=== PATIENT | female | born 1950 | race Caucasian/White ===

== ENCOUNTER → 2017-09-13 | Emergency (ER) | payer MEDICARE, MEDICAID ==
[~2017-09-13] VITALS: Ht 157.5 cm; Wt 49.9 kg
[~2017-09-13] MED LIST: BUSPIRONE HCL10 M1 ORAL; FOLIC ACID1 MG ORAL; IBUPROFEN600 MG ORAL; MAGNESIUM400 M1 PO; MULTIVITAMINS1 EAC2 ORAL; PANTOPRAZOLE SO40 MG ORAL; TRAZODONE HCL150 MG ORAL; VENLAFAXINE HC150 MG ORAL
[2017-09-13 15:53] VITALS: BP 128/88
[2017-09-13 16:26] LABS: APPEARANCE,URINE CLEAR; BILIRUBIN, URINE NEGATIVE (NEGATIVE); COLOR,URINE PALE YELLOW; GLUCOSE, URINE (UA) NEGATIVE (NEGATIVE); KETONES,URINE NEGATIVE (NEGATIVE); LEUKOCYTE ESTERASE ,URINE NEGATIVE (NEGATIVE); NITRITE,URINE NEGATIVE (NEGATIVE); PH,URINE 6 (4.5-8.0); PROTEIN,URINE NEGATIVE (NEGATIVE); UROBILINOGEN,URINE NORMAL MG/DL (0.0-1.0)
[2017-09-13 16:31] LABS: BASOPHILS % (AUTO) 1.7 % (0.0-2.0); HEMATOCRIT 41.7 % (37.0-47.0); HEMOGLOBIN 13.2 G/DL (12.0-16.0); LYMPHOCYTES % (AUTO) 28.7 % (20.0-45.0); MEAN CORPUSCULAR VOLUME 108 FL (80-99); MONOCYTES % (AUTO) 8.1 % (1.0-10.0); NEUTROPHILS % (AUTO) 60.6 % (45.0-75.0); PLATELET COUNT 248 K/UL (150-450); RED BLOOD COUNT 3.88 M/UL (4.20-5.40); RED CELL DISTRIBUTION WIDTH 15.9 % (11.6-14.8); WHITE BLOOD COUNT 6.4 K/UL (4.8-10.8)
--- NOTE | 2017-09-13 16:50 | Emergency Room Report ---
History of Present Illness General Chief Complaint: General Complaint Source: Patient, EMS Present Illness HPI 67-year-old female, history of alcohol abuse, here for alcohol detox. Patient states that she is drink every day, when she tries to stand she gets tremulous. Never had any seizures. Last hospitalization was at [facility] for pancreatitis 3 weeks ago. She has no other complaints at this time Allergies: Coded Allergies: No Known Allergies (Unverified , 09/13/17) Patient History Past Medical History: see triage record Past Surgical History: none Pertinent Family History: none Reviewed Nursing Documentation: PMH: Agreed, PSxH: Agreed Nursing Documentation-PMH Hx Gastrointestinal Problems: Yes - PANCREATITIS History Of Psychiatric Problem: Yes - ALCOHOLIC Review of Systems All Other Systems: negative except mentioned in HPI Physical Exam Vital Signs Date Time Temp Pulse Resp B/P (MAP) Pulse Ox O2 Delivery O2 Flow Rate FiO2 09/13/17 15:53 98.4 106 20 128/88 99 Room Air Sp02 EP Interpretation: reviewed, normal General Appearance: no apparent distress, alert, GCS 15, thin, Chronically Ill Head: normocephalic, atraumatic Eyes: bilateral eye normal inspection, bilateral eye PERRL, bilateral eye EOMI ENT: normal ENT inspection, normal pharynx, normal voice, moist mucus membranes Neck: normal inspection, full range of motion, supple Respiratory: normal inspection, lungs clear, normal breath sounds, no respiratory distress, no retraction, no wheezing, speaking full sentences, chest symmetrical Cardiovascular #1: normal inspection, regular rate, rhythm, no edema, normal capillary refill Cardiovascular #2: 2+ radial (R), 2+ radial (L) Gastrointestinal: normal inspection, non tender, soft, non-distended, no guarding Musculoskeletal: normal inspection, back normal, normal range of motion, non- tender Neurologic: normal inspection, alert, oriented x3, responsive, motor strength/ tone normal, sensory intact, normal gait, speech normal Psychiatric: normal inspection, judgement/insight normal, memory normal Skin: normal inspection, normal color, no rash, warm/dry, well hydrated, normal turgor Medical Decision Making Diagnostic Impression: Primary Impression: Alcohol dependence ER Course 67-year-old female, alcohol abuse, here for alcohol detoxification DDX: Alcohol detoxification, no signs of withdrawal at this time Plan: Obtain labs, alcohol level ER course: Patient has been monitored during ED stay, HD stable No signs of withdrawal at this time Patient clinically sober, ambulating around the emergency room Patient was initially admitted for alcohol detoxification, was seen by Dr Pittman However patient's car was being towed, patient left AGAINST MEDICAL ADVICE and stated that she needed to take care of her car. Although patient's alcohol level elevated, patient was clinically sober. Patient with long history of alcohol dependence, high tolerance Patient is clinically sober, is free from from distracting injury, and has intact judgement and capacity to decide to leave against medical advice. Patient came in for alcohol detox Patient verbalized understanding of my concern and my need to admit patient, but patient still wanted to leave. Stated that she will come back tomorrow.. I explained to patient the risks of leaving AMA and patient informed that if they leave, they could get worse, ould become become critically ill, possibly become disabled or . Patient verbalized back to me understanding of these risks but still wants to leave. Disposition: Patient left AMA Please note that this Emergency Department Report was dictated using [employer] readers supervisor technology software, occasionally this can lead to erroneous entry secondary to interpretation by the dictation equipment. Laboratory Tests Test 09/13/17 16:00 09/13/17 16:05 Urine Color Pale yellow Urine Appearance Clear Urine pH 6 (4.5-8.0) Urine Specific [place] 1.015 (1.005-1.035) Urine Protein Negative (NEGATIVE) Urine Glucose (UA) Negative (NEGATIVE) Urine Ketones Negative (NEGATIVE) Urine Occult Blood Negative (NEGATIVE) Urine Nitrite Negative (NEGATIVE) Urine Bilirubin Negative (NEGATIVE) Urine Urobilinogen Normal MG/DL (0.0-1.0) Urine Leukocyte Esterase Negative (NEGATIVE) Urine Opiates Screen Negative (NEGATIVE) Urine Barbiturates Screen Negative (NEGATIVE) Phencyclidine (PCP) Screen Negative (NEGATIVE) Urine Amphetamines Screen Negative (NEGATIVE) Urine Benzodiazepines Screen Negative (NEGATIVE) Urine Cocaine Screen Negative (NEGATIVE) Urine Marijuana (THC) Screen Negative (NEGATIVE) White Blood Count 6.4 K/UL (4.8-10.8) Red Blood Count 3.88 M/UL (4.20-5.40) L Hemoglobin 13.2 G/DL (12.0-16.0) Hematocrit 41.7 % (37.0-47.0) Mean Corpuscular Volume 108 FL (80-99) H Mean Corpuscular Hemoglobin 34.0 PG (27.0-31.0) H Mean Corpuscular Hemoglobin Concent 31.7 G/DL (32.0-36.0) L Red Cell Distribution Width 15.9 % (11.6-14.8) H Platelet Count 248 K/UL (150-450) Mean Platelet Volume 5.0 FL (6.5-10.1) L Neutrophils (%) (Auto) 60.6 % (45.0-75.0) Lymphocytes (%) (Auto) 28.7 % (20.0-45.0) Monocytes (%) (Auto) 8.1 % (1.0-10.0) Eosinophils (%) (Auto) 1.0 % (0.0-3.0) Basophils (%) (Auto) 1.7 % (0.0-2.0) Sodium Level 137 MMOL/L (136-145) Potassium Level 5.1 MMOL/L (3.5-5.1) Chloride Level 100 MMOL/L (98-107) Carbon Dioxide Level 21 MMOL/L (21-32) Anion Gap 16 mmol/L (5-15) H Blood Urea Nitrogen 17 mg/dL (7-18) Creatinine 0.8 MG/DL (0.55-1.30) Estimate Glomerular Filtration Rate > 60 mL/min (>60) Glucose Level 90 MG/DL (74-106) Calcium Level 8.7 MG/DL (8.5-10.1) Total Bilirubin 0.5 MG/DL (0.2-1.0) Aspartate Amino Transferase (AST) 90 U/L (15-37) H Alanine Aminotransferase (ALT) 58 U/L (12-78) Alkaline Phosphatase 159 U/L (46-116) H Total Protein 7.0 G/DL (6.4-8.2) Albumin 3.1 G/DL (3.4-5.0) L Globulin 3.9 g/dL Albumin/Globulin Ratio 0.8 (1.0-2.7) L Lipase 258 U/L (73-393) Salicylates Level 3.5 ug/mL (2.8-20) Acetaminophen Level < 2 MCG/ML (10-30) L Serum Alcohol 211 mg/dL Last Vital Signs Date Time Temp Pulse Resp B/P (MAP) Pulse Ox O2 Delivery O2 Flow Rate FiO2 09/13/17 15:53 98.4 106 20 128/88 99 Room Air Disposition: AGAINST MEDICAL ADVICE Condition: Stable Referrals: Gaudencio Pittman MD (PCP) Khurram Mora M.D. Sep 13, 2017 16:50
[2017-09-13 16:53] LABS: ANION GAP 16 mmol/L (5-15); BLOOD UREA NITROGEN 17 mg/dL (7-18); CALCIUM 8.7 MG/DL (8.5-10.1); CARBON DIOXIDE 21 MMOL/L (21-32); CHLORIDE 100 MMOL/L (98-107); CREATININE 0.8 MG/DL (0.55-1.30); POTASSIUM 5.1 MMOL/L (3.5-5.1); SODIUM 137 MMOL/L (136-145)
[2017-09-13 16:58] LABS: ALANINE AMINOTRANSFERASE 58 U/L (12-78); ALBUMIN 3.1 G/DL (3.4-5.0); ALBUMIN/GLOBULIN RATIO 0.8 (1.0-2.7); ALKALINE PHOSPHATASE 159 U/L (46-116); BILIRUBIN,TOTAL 0.5 MG/DL (0.2-1.0)
[2017-09-13 17:07] LABS: ASPARTATE AMINO TRANSFERASE 90 U/L (15-37)
--- NOTE | 2017-09-13 17:32 | History & Physical ---
History and Physical History & Physicial Last 24 Hour Vital Signs Date Time Temp Pulse Resp B/P (MAP) Pulse Ox O2 Delivery O2 Flow Rate FiO2 09/13/17 15:53 98.4 106 20 128/88 99 Room Air Patient was seen and exam in ED H&P dictated Gaudencio Pittman MD Sep 13, 2017 17:32
--- NOTE | 2017-09-15 10:00 | History and Physical Report ---
DATE OF ADMISSION: 09/13/2017 NOTE: POOR AUDIO CHIEF COMPLAINT: Alcoholism. HISTORY OF PRESENT ILLNESS: This is a 67-year-old female with past medical history significant for alcohol abuse as well as depression and prior history of pancreatitis, who presented to emergency room complaining about alcoholism and is requiring alcohol detoxification. The patient has been usually drinking everyday more than a pint of vodka. She states that she has been drinking over 10 to 15 years on and off and she is tired of standing and getting tremulous, never had any seizure. Last hospitalization was at [facility] for pancreatitis three weeks ago and she has no other complaints at this time. Subsequently, the patient, after initial evaluation in the emergency room, was admitted to the hospital for alcoholism and alcohol detoxification. PAST MEDICAL HISTORY/PAST SURGICAL HISTORY: As above. History of depression and anxiety. History of alcoholism with prior history of pancreatitis. MEDICATIONS: Medications at home is significant for , ibuprofen, magnesium, multivitamins, Nexium, trazodone, and Effexor. ALLERGIES: No known drug allergies. SOCIAL HISTORY: The patient currently drinks over a pint of vodka over 10 to 15 years. Smoked one pack of cigarettes. Denies any substance abuse. FAMILY HISTORY: Noncontributory. REVIEW OF SYSTEMS: Mostly as above. Denies any dysuria, frequency, or hematuria. Denies any abdominal pain. Denies any hemoptysis or hematochezia. Denies any suicidal or homicidal ideation. Denies any loss of consciousness. Denies any double vision. She is feeling nervous and anxious. She denies any seizure activity. PHYSICAL EXAMINATION: VITAL SIGNS: On admission, temperature 98.4 degrees, pulse of 106, respirations 20, and blood pressure 128/88. GENERAL: The patient awake, responsive, cachectic, and chronically ill-looking. HEENT: Pupils reactive to light. Extraocular movements intact. NECK: Supple. No JVD. LUNGS: rales. HEART: S1 and S2. Regular rhythm. No gallops. ABDOMEN: Soft, nondistended, and nontender. Positive bowel sounds. RECTAL: Refused and deferred. GENITOURINARY: Refused and deferred. EXTREMITIES: No cyanosis, clubbing, or edema. NEUROLOGIC: Cranial nerves II through XII grossly intact. Motor is 5/5 in all extremities. Gait is intact. LABORATORY DATA: On admission, WBC of 6.4, hemoglobin 13, hematocrit 41, and platelets are 248. Sodium 137, potassium 5.1, chloride 100, bicarbonate 21, BUN 17, creatinine 0.8, glucose 98, and calcium is 8.7. Total bilirubin of 0.5, AST of 90, ALT of 58, and alkaline phosphatase 159. Albumin is 3.1. Lipase is 258. UA is unremarkable. Urine drug screen is unremarkable. Acetaminophen level is less than 2. Serum alcohol level is 211. ASSESSMENT: 1. Alcoholism. 2. Prior history of pancreatitis. 3. Anxiety and depression. PLAN: At this time, the patient will be admitted for alcohol detoxification and discussed with the patient with regard to the withdrawal symptoms and the patient is very anxious, wants to sign against medical advice because of her car situation in the parking lot. She states that she wants to leave the hospital to take care of her car and possibly return back in the morning. I discussed with the patient that we have cushion assembler parking and mill attendant will take care of her car at this time while she is in the hospital. She is still very anxious and she wants to leave against medical advice. Discussed with the patient with regard to the alcohol intoxication as well as withdrawal symptoms. She understood that and she signed against medical advice and left the hospital. Gaudencio Pittman M.D. DR: Jana JOB#: [id number] CC:
--- NOTE | 2017-09-30 09:19 | IOP Physician Progress Note ---
IOP Physician Progress Note Problem: depression Description of Symptoms: Says she is feeling better, that the fog is lifting, from the drinking, is now sober 10 days. But does not feel well emotionally, feels depressed and anxious , has had pounding heart, which has been happening past month or so. Diagnosis (1) Alcohol dependence [place] I: Major depression Alcoholism, chronic [place]: II deferred [place]: III pancreatitis [place]: IV moderate [place]: V 31-40 Progress Since Last Eval: Patient is still dysphoric, but HAS remained sober. Current Med Management: This is under review. Sees Dr. Pittman who has been managing psychiatric medications. Home Meds: Reported Medications Trazodone* (TRAZODONE*) 150 Mg Tablet, 50 MG ORAL BEDTIME, TAB 09/13/17 Magnesium Oxide (MAGNESIUM) 400 Mg Capsule, 400 MG PO DAILY, CAP 09/13/17 Ibuprofen* (MOTRIN*) 600 Mg Tablet, 800 MG ORAL Q8HR, #30 TAB 0 Refills 09/13/17 Pantoprazole* (PANTOPRAZOLE*) 40 Mg Tablet.dr, 40 MG ORAL DAILY, TAB 09/13/17 Venlafaxine Hcl* (VENLAFAXINE HCL ER*) 150 Mg Cap.er.24h, 150 MG ORAL DAILY, CAP 09/13/17 Buspirone Hcl* (BUSPIRONE HCL*) 10 Mg Tablet, 10 MG ORAL DAILY, #60 TAB 0 Refills 09/13/17 Multivitamins* (MULTIVITAMINS*) 1 Each Tablet, 1 TAB ORAL DAILY, TAB 0 Refills 09/13/17 Appearance: well groomed Affect: constricted Mood: depressed Thought Process: no abnormalities Thought Content: no abnormalities Suicidal/Homicidal Ideations: not present Risk Assessment: low risk at this time Cognition: no abnormalities Accomplishments before DC: Needs to develop tools to remain sober, and work on depression. Comments There are no acute physiclal problems apart from the pancreatitis which is being followed. YINKA HILL Sep 30, 2017 09:18
--- NOTE | 2017-11-25 09:16 | IOP Physician Progress Note ---
IOP Physician Progress Note Description of Symptoms: The patient is feeling more depressed, and says her bulemia is back, the worst it has been for some time--she is eating a lot and throwing up. Diagnosis (1) Alcohol dependence [place] I: Major depression Alcoholism, chronic bulemia [place]: II deferred [place]: III pancreatitis [place]: IV moderate [place]: V 31-40 Progress Since Last Eval: The patient feels she has been regressing. Current Med Management: The patient has increased her buspar to twice a day, for a few weeks. This has , however, been inconsistent. We will increase it to regularly to twice a day. Will also increase effexor to 225 a day. Home Meds: Reported Medications Folic Acid* (FOLIC ACID*) 1 Mg Tablet, 1 MG ORAL DAILY, TAB 09/30/17 Trazodone* (TRAZODONE*) 150 Mg Tablet, 50 MG ORAL BEDTIME, TAB 09/13/17 Magnesium Oxide (MAGNESIUM) 400 Mg Capsule, 400 MG PO DAILY, CAP 09/13/17 Ibuprofen* (MOTRIN*) 600 Mg Tablet, 800 MG ORAL Q8HR, #30 TAB 0 Refills 09/13/17 Pantoprazole* (PANTOPRAZOLE*) 40 Mg Tablet.dr, 40 MG ORAL DAILY, TAB 09/13/17 Venlafaxine Hcl* (VENLAFAXINE HCL ER*) 150 Mg Cap.er.24h, 150 MG ORAL DAILY, CAP 09/13/17 Buspirone Hcl* (BUSPIRONE HCL*) 10 Mg Tablet, 10 MG ORAL DAILY, #60 TAB 0 Refills 09/13/17 Multivitamins* (MULTIVITAMINS*) 1 Each Tablet, 1 TAB ORAL DAILY, TAB 0 Refills 09/13/17 Appearance: well groomed Affect: constricted Mood: depressed Thought Process: no abnormalities Thought Content: no abnormalities Suicidal/Homicidal Ideations: not present Risk Assessment: low risk at this time Cognition: no abnormalities Accomplishments before DC: Needs to get back to her usual state of well being. Comments There are no physical problems. Jesus Joseph MD Nov 25, 2017 09:16
== END | disposition home or self-care (01) ==
LOC: EMR 15:59 → CANBEDREQ 17:44
DX: F10.20 Alcohol dependence, uncomplicated (principal); F41.9 Anxiety disorder, unspecified; F32.9 Major depressive disorder, single episode, unspecified; Z87.19 Personal history of other diseases of the digestive system
CPT/HCPCS: 36415; 80053; 80307; 81003; 83690; 85025; 99282; G0480; 80329

== ENCOUNTER 2017-09-15 13:41 | Inpatient (IN) | payer MEDICARE, MEDICAID ==
[~2017-09-15] VITALS: Ht 157.5 cm; Wt 49.9 kg
[~2017-09-15 13:41] MED LIST changes: -FOLIC ACID1 MG ORAL
--- NOTE | 2017-09-15 14:07 | Emergency Room Report ---
History of Present Illness General Chief Complaint: General Complaint Source: Patient Present Illness HPI 67-year-old female, history of alcohol abuse, here for alcohol detox. Patient states that she has been drinking every day, last drink was this morning. Feeling slightly tremulous right now. Episode of vomiting earlier today. No fever chills chest pain or abdominal pain currently. Denies history of seizures in the past Allergies: Coded Allergies: No Known Allergies (Unverified , 09/13/17) Patient History Past Medical History: see triage record Past Surgical History: none Pertinent Family History: none Reviewed Nursing Documentation: PMH: Agreed, PSxH: Agreed Nursing Documentation-PM Past Medical History: No History, Except For Review of Systems All Other Systems: negative except mentioned in HPI Physical Exam Vital Signs Date Time Temp Pulse Resp B/P (MAP) Pulse Ox O2 Delivery O2 Flow Rate FiO2 09/15/17 13:45 97.5 122 16 147/64 97 Room Air Sp02 EP Interpretation: reviewed, normal General Appearance: alert, GCS 15, non-toxic, mild distress, other - slight tremors Head: normocephalic, atraumatic Eyes: bilateral eye normal inspection, bilateral eye PERRL, bilateral eye EOMI ENT: normal ENT inspection, normal pharynx, normal voice, moist mucus membranes Neck: normal inspection, full range of motion, supple Respiratory: normal inspection, lungs clear, normal breath sounds, no respiratory distress, no retraction, no wheezing, speaking full sentences, chest symmetrical Cardiovascular #1: no edema, normal capillary refill, tachycardia Cardiovascular #2: 2+ radial (R), 2+ radial (L) Gastrointestinal: normal inspection, non tender, soft, non-distended, no guarding Musculoskeletal: normal inspection, back normal, normal range of motion, non- tender Neurologic: normal inspection, alert, oriented x3, responsive, gear tooth lapping machine operator III-XII nml as tested, motor strength/tone normal, sensory intact, normal gait, speech normal Psychiatric: normal inspection, judgement/insight normal, memory normal Skin: normal inspection, normal color, no rash, warm/dry, well hydrated, normal turgor Medical Decision Making Diagnostic Impression: Primary Impression: Alcohol withdrawal ER Course 67-year-old female, history of alcohol abuse, here for alcohol detoxification currently clinically sober DDX: Alcohol withdrawal here for alcohol detoxification Plan: Obtain labs, ua, Ativan as needed ER course: Patient has been monitored during ED stay, HD stable Given 2 mg Ativan received IVF still tremulous, given more ativan [id number] Disposition: Patient is to be admitted to Tele D/W hospitalist Dr Pittman Please note that this Emergency Department Report was dictated using [employer] standards director technology software, occasionally this can lead to erroneous entry secondary to interpretation by the dictation equipment. Rhythm Strip EP Interpretation: Yes Rate: 107 Rhythm: NSR, no PVCs, no ectopy Laboratory Tests Test 09/15/17 14:20 09/15/17 15:50 White Blood Count 7.6 K/UL (4.8-10.8) Red Blood Count 3.73 M/UL (4.20-5.40) L Hemoglobin 13.3 G/DL (12.0-16.0) Hematocrit 40.8 % (37.0-47.0) Mean Corpuscular Volume 109 FL (80-99) H Mean Corpuscular Hemoglobin 35.6 PG (27.0-31.0) H Mean Corpuscular Hemoglobin Concent 32.6 G/DL (32.0-36.0) Red Cell Distribution Width 16.3 % (11.6-14.8) H Platelet Count 228 K/UL (150-450) Mean Platelet Volume 5.5 FL (6.5-10.1) L Neutrophils (%) (Auto) 68.9 % (45.0-75.0) Lymphocytes (%) (Auto) 21.8 % (20.0-45.0) Monocytes (%) (Auto) 8.0 % (1.0-10.0) Eosinophils (%) (Auto) 0.1 % (0.0-3.0) Basophils (%) (Auto) 1.3 % (0.0-2.0) Sodium Level 139 MMOL/L (136-145) Potassium Level 3.3 MMOL/L (3.5-5.1) L Chloride Level 98 MMOL/L (98-107) Carbon Dioxide Level 8 MMOL/L (21-32) *L Anion Gap 33 mmol/L (5-15) H Blood Urea Nitrogen 14 mg/dL (7-18) Creatinine 0.9 MG/DL (0.55-1.30) Estimate Glomerular Filtration Rate > 60 mL/min (>60) Glucose Level 51 MG/DL (74-106) L Calcium Level 8.3 MG/DL (8.5-10.1) L Total Bilirubin 0.3 MG/DL (0.2-1.0) Aspartate Amino Transferase (AST) 99 U/L (15-37) H Alanine Aminotransferase (ALT) 59 U/L (12-78) Alkaline Phosphatase 166 U/L (46-116) H Total Protein 6.9 G/DL (6.4-8.2) Albumin 3.2 G/DL (3.4-5.0) L Globulin 3.7 g/dL Albumin/Globulin Ratio 0.9 (1.0-2.7) L Salicylates Level 4.0 ug/mL (2.8-20) Acetaminophen Level < 2 MCG/ML (10-30) L Serum Alcohol 118 mg/dL Arterial Blood pH 7.310 (7.350-7.450) Arterial Blood Partial Pressure CO2 29.1 mmHg (35.0-45.0) L Arterial Blood Partial Pressure O2 72.1 mmHg (75.0-100.0) L Arterial Blood HCO3 14.3 mmol/L (22.0-26.0) L Arterial Blood Oxygen Saturation 91.5 % (92.0-98.0) L Arterial Blood Base Excess -10.5 Pravin Test Positive Last Vital Signs Date Time Temp Pulse Resp B/P (MAP) Pulse Ox O2 Delivery O2 Flow Rate FiO2 09/15/17 13:45 97.5 122 16 147/64 97 Room Air Disposition: ADMITTED INPATIENT Condition: Serious Khurram Mora M.D. Sep 15, 2017 14:07
[2017-09-15] MEDS ORDERED: LORazepam Inj 2mg/ml 1ml IV ONE ×3 (14:15→16:30)
[2017-09-15 14:26] VITALS: BP 134/92
[2017-09-15 14:54] LABS: BASOPHILS % (AUTO) 1.3 % (0.0-2.0); EOSINOPHILS % (AUTO) 0.1 % (0.0-3.0); HEMATOCRIT 40.8 % (37.0-47.0); HEMOGLOBIN 13.3 G/DL (12.0-16.0); LYMPHOCYTES % (AUTO) 21.8 % (20.0-45.0); MEAN CORPUSCULAR VOLUME 109 FL (80-99); NEUTROPHILS % (AUTO) 68.9 % (45.0-75.0); PLATELET COUNT 228 K/UL (150-450); RED BLOOD COUNT 3.73 M/UL (4.20-5.40); RED CELL DISTRIBUTION WIDTH 16.3 % (11.6-14.8); WHITE BLOOD COUNT 7.6 K/UL (4.8-10.8)
[2017-09-15 15:33] LABS: ALANINE AMINOTRANSFERASE 59 U/L (12-78); ALBUMIN 3.2 G/DL (3.4-5.0); ALBUMIN/GLOBULIN RATIO 0.9 (1.0-2.7); ALKALINE PHOSPHATASE 166 U/L (46-116); ANION GAP 33 mmol/L (5-15); ASPARTATE AMINO TRANSFERASE 99 U/L (15-37); BILIRUBIN,TOTAL 0.3 MG/DL (0.2-1.0); BLOOD UREA NITROGEN 14 mg/dL (7-18); CALCIUM 8.3 MG/DL (8.5-10.1); CHLORIDE 98 MMOL/L (98-107); CREATININE 0.9 MG/DL (0.55-1.30); POTASSIUM 3.3 MMOL/L (3.5-5.1); SODIUM 139 MMOL/L (136-145)
[2017-09-15 15:35] LABS: CARBON DIOXIDE 8 MMOL/L (21-32)
[2017-09-15] MEDS ORDERED: chlordiazePOXIDE 25mg Cap ORAL ONE (16:15)
[2017-09-15] MEDS ORDERED: Morphine Sulfate 2mg/ml Inj IVP PRN (16:15)
[2017-09-15] MEDS ORDERED: Mylanta II UD 30ml ORAL PRN (16:15)
[2017-09-15] MEDS ORDERED: LORazepam Inj 2mg/ml 1ml IV PRN (16:15)
[2017-09-15] MEDS ORDERED: Thiamine HCl 100 MG in NS 55 ML IVPB SCH (18:00)
[2017-09-15] MEDS ORDERED: Folic Acid 1 MG, Magnesium Sulfate 2,000 MG, Multivitamin - 12 Injection 10 ML in NS w/... IV SCH (18:00)
[2017-09-15 18:01] VITALS: BP 119/81
[2017-09-15 20:00] VITALS: BP 119/84
[2017-09-15] MEDS ORDERED: chlordiazePOXIDE 25mg Cap ORAL PRN (20:00)
[2017-09-15] MEDS ORDERED: Zolpidem 5mg tab ORAL PRN (21:00)
[2017-09-15] MEDS: Heparin 5000 units/ml inj SUBQ SCH (21:00)
[2017-09-15] MEDS ORDERED: Miralax 17gm pkt ORAL PRN (21:00)
[2017-09-15] MEDS ORDERED: TraZODone 50mg tab ORAL SCH (21:00)
[2017-09-16] VITALS: BP 129/80
[2017-09-16 04:00] VITALS: BP 135/80
[2017-09-16 07:59] LABS: BASOPHILS % (AUTO) 0.7 % (0.0-2.0); EOSINOPHILS % (AUTO) 1.1 % (0.0-3.0); HEMATOCRIT 33.4 % (37.0-47.0); LYMPHOCYTES % (AUTO) 22.3 % (20.0-45.0); MEAN CORPUSCULAR VOLUME 109 FL (80-99); MONOCYTES % (AUTO) 10.1 % (1.0-10.0); NEUTROPHILS % (AUTO) 65.9 % (45.0-75.0); PLATELET COUNT 161 K/UL (150-450); RED BLOOD COUNT 3.07 M/UL (4.20-5.40); RED CELL DISTRIBUTION WIDTH 16.7 % (11.6-14.8); WHITE BLOOD COUNT 4.8 K/UL (4.8-10.8)
[2017-09-16 08:00] VITALS: BP 118/76
[2017-09-16 08:15] LABS: ALANINE AMINOTRANSFERASE 45 U/L (12-78); ALBUMIN 2.5 G/DL (3.4-5.0); ALBUMIN/GLOBULIN RATIO 0.8 (1.0-2.7); ALKALINE PHOSPHATASE 150 U/L (46-116); ANION GAP 13 mmol/L (5-15); ASPARTATE AMINO TRANSFERASE 80 U/L (15-37); BILIRUBIN,TOTAL 0.5 MG/DL (0.2-1.0); BLOOD UREA NITROGEN 8 mg/dL (7-18); CALCIUM 7.6 MG/DL (8.5-10.1); CARBON DIOXIDE 22 MMOL/L (21-32); CHLORIDE 102 MMOL/L (98-107); CREATININE 0.8 MG/DL (0.55-1.30); POTASSIUM 3.8 MMOL/L (3.5-5.1); SODIUM 137 MMOL/L (136-145)
[2017-09-16] MEDS ORDERED: BusPIRone 5mg Tab ORAL SCH (09:00)
[2017-09-16] MEDS ORDERED: Venlafaxine XR 150mg cap ORAL SCH (09:00)
[2017-09-16] MEDS: Heparin 5000 units/ml inj SUBQ SCH ×2 (09:24→20:37)
[2017-09-16 10:18] LABS: APPEARANCE,URINE CLEAR; BILIRUBIN, URINE NEGATIVE (NEGATIVE); COLOR,URINE PALE YELLOW; GLUCOSE, URINE (UA) NEGATIVE (NEGATIVE); KETONES,URINE 4+ (NEGATIVE); LEUKOCYTE ESTERASE ,URINE NEGATIVE (NEGATIVE); NITRITE,URINE NEGATIVE (NEGATIVE); PH,URINE 5 (4.5-8.0); PROTEIN,URINE NEGATIVE (NEGATIVE); UROBILINOGEN,URINE NORMAL MG/DL (0.0-1.0)
--- NOTE | 2017-09-16 11:18 | Neurology Progress Note ---
Objective Physical Exam Last Vital Signs Date Time Temp Pulse Resp B/P (MAP) Pulse Ox O2 Delivery O2 Flow Rate FiO2 09/16/17 08:00 97.9 99 20 118/76 99 Room Air Laboratory Tests Test 09/15/17 14:20 09/15/17 15:50 09/16/17 07:15 09/16/17 09:30 White Blood Count 7.6 K/UL (4.8-10.8) 4.8 K/UL (4.8-10.8) Red Blood Count 3.73 M/UL (4.20-5.40) L 3.07 M/UL (4.20-5.40) L Hemoglobin 13.3 G/DL (12.0-16.0) 11.0 G/DL (12.0-16.0) L Hematocrit 40.8 % (37.0-47.0) 33.4 % (37.0-47.0) L Mean Corpuscular Volume 109 FL (80-99) H 109 FL (80-99) H Mean Corpuscular Hemoglobin 35.6 PG (27.0-31.0) H 36.0 PG (27.0-31.0) H Mean Corpuscular Hemoglobin Concent 32.6 G/DL (32.0-36.0) 33.1 G/DL (32.0-36.0) Red Cell Distribution Width 16.3 % (11.6-14.8) H 16.7 % (11.6-14.8) H Platelet Count 228 K/UL (150-450) 161 K/UL (150-450) Mean Platelet Volume 5.5 FL (6.5-10.1) L 5.7 FL (6.5-10.1) L Neutrophils (%) (Auto) 68.9 % (45.0-75.0) 65.9 % (45.0-75.0) Lymphocytes (%) (Auto) 21.8 % (20.0-45.0) 22.3 % (20.0-45.0) Monocytes (%) (Auto) 8.0 % (1.0-10.0) 10.1 % (1.0-10.0) H Eosinophils (%) (Auto) 0.1 % (0.0-3.0) 1.1 % (0.0-3.0) Basophils (%) (Auto) 1.3 % (0.0-2.0) 0.7 % (0.0-2.0) Sodium Level 139 MMOL/L (136-145) 137 MMOL/L (136-145) Potassium Level 3.3 MMOL/L (3.5-5.1) L 3.8 MMOL/L (3.5-5.1) Chloride Level 98 MMOL/L (98-107) 102 MMOL/L (98-107) Carbon Dioxide Level 8 MMOL/L (21-32) *L 22 MMOL/L (21-32) Anion Gap 33 mmol/L (5-15) H 13 mmol/L (5-15) Blood Urea Nitrogen 14 mg/dL (7-18) 8 mg/dL (7-18) Creatinine 0.9 MG/DL (0.55-1.30) 0.8 MG/DL (0.55-1.30) Estimat Glomerular Filtration Rate > 60 mL/min (>60) > 60 mL/min (>60) Glucose Level 51 MG/DL (74-106) L 103 MG/DL (74-106) Calcium Level 8.3 MG/DL (8.5-10.1) L 7.6 MG/DL (8.5-10.1) L Total Bilirubin 0.3 MG/DL (0.2-1.0) 0.5 MG/DL (0.2-1.0) Aspartate Amino Transf (AST/SGOT) 99 U/L (15-37) H 80 U/L (15-37) H Alanine Aminotransferase (ALT/SGPT) 59 U/L (12-78) 45 U/L (12-78) Alkaline Phosphatase 166 U/L (46-116) H 150 U/L (46-116) H Total Protein 6.9 G/DL (6.4-8.2) 5.7 G/DL (6.4-8.2) L Albumin 3.2 G/DL (3.4-5.0) L 2.5 G/DL (3.4-5.0) L Globulin 3.7 g/dL 3.2 g/dL Albumin/Globulin Ratio 0.9 (1.0-2.7) L 0.8 (1.0-2.7) L Salicylates Level 4.0 ug/mL (2.8-20) Acetaminophen Level < 2 MCG/ML (10-30) L Serum Alcohol 118 mg/dL Arterial Blood pH 7.310 (7.350-7.450) Arterial Blood Partial Pressure CO2 29.1 mmHg (35.0-45.0) L Arterial Blood Partial Pressure O2 72.1 mmHg (75.0-100.0) L Arterial Blood HCO3 14.3 mmol/L (22.0-26.0) L Arterial Blood Oxygen Saturation 91.5 % (92.0-98.0) L Arterial Blood Base Excess -10.5 Pravin Test Positive Urine Color Pale yellow Urine Appearance Clear Urine pH 5 (4.5-8.0) Urine Specific [place] 1.020 (1.005-1.035) Urine Protein Negative (NEGATIVE) Urine Glucose (UA) Negative (NEGATIVE) Urine Ketones 4+ (NEGATIVE) H Urine Occult Blood Negative (NEGATIVE) Urine Nitrite Negative (NEGATIVE) Urine Bilirubin Negative (NEGATIVE) Urine Urobilinogen Normal MG/DL (0.0-1.0) Urine Leukocyte Esterase Negative (NEGATIVE) Urine Opiates Screen Negative (NEGATIVE) Urine Barbiturates Screen Negative (NEGATIVE) Phencyclidine (PCP) Screen Negative (NEGATIVE) Urine Amphetamines Screen Negative (NEGATIVE) Urine Benzodiazepines Screen Negative (NEGATIVE) Urine Cocaine Screen Negative (NEGATIVE) Urine Marijuana (THC) Screen Negative (NEGATIVE) Impression/Recommendations Recommendations #[id number] JAMAL JHAVERI Sep 16, 2017 11:18
--- NOTE | 2017-09-16 11:27 | Consultation ---
History of Present Illness General Date patient seen: Sep 16, 2017 Chief Complaint: General Complaint Present Illness HPI 67-year-old female, history of alcohol dependance for the last 20 yrs and severe depression , here for alcohol detox. the pt is depressed and has severe anhedonia and hopelessness. the pt was interested in ECT. the pt is devastated, her daughter the pts grandson and herself about the month ago. Allergies: Coded Allergies: No Known Allergies (Unverified , 09/13/17) Medication History Scheduled Buspirone Hcl* (Buspirone Hcl*), 10 MG ORAL DAILY, (Reported) Ibuprofen* (Motrin*), 800 MG ORAL Q8HR, (Reported) Magnesium Oxide (Magnesium), 400 MG PO DAILY, (Reported) Multivitamins* (Multivitamins*), 1 TAB ORAL DAILY, (Reported) Pantoprazole* (Pantoprazole*), 40 MG ORAL DAILY, (Reported) Trazodone* (Trazodone*), 50 MG ORAL BEDTIME, (Reported) Venlafaxine Hcl* (Venlafaxine Hcl Er*), 150 MG ORAL DAILY, (Reported) Patient History History Provided By: Patient Healthcare decision maker Resuscitation status Full Code Advanced Directive on File No Physical Exam Last 24 Hour Vital Signs Date Time Temp Pulse Resp B/P (MAP) Pulse Ox O2 Delivery O2 Flow Rate FiO2 09/16/17 08:00 97.9 99 20 118/76 99 Room Air 09/16/17 04:00 98.2 102 20 135/80 94 Room Air 102 09/16/17 04:00 100 09/16/17 00:00 97.4 100 12 129/80 97 Room Air 09/16/17 00:00 107 09/15/17 20:00 97.9 110 20 119/84 95 Room Air 09/15/17 20:00 125 09/15/17 18:01 97.0 128 18 119/81 98 Room Air 09/15/17 17:26 97.5 111 20 134/92 95 Room Air 09/15/17 14:26 111 20 134/92 95 Room Air 09/15/17 13:45 97.5 122 16 147/64 97 Room Air Intake and Output 09/15/17 09/16/17 19:00 07:00 Intake Total 170 ml 400 ml Balance 170 ml 400 ml Intake Oral 170 ml 400 ml # Voids 1 Laboratory Tests Test 09/15/17 14:20 09/15/17 15:50 09/16/17 07:15 09/16/17 09:30 White Blood Count 7.6 K/UL (4.8-10.8) 4.8 K/UL (4.8-10.8) Red Blood Count 3.73 M/UL (4.20-5.40) L 3.07 M/UL (4.20-5.40) L Hemoglobin 13.3 G/DL (12.0-16.0) 11.0 G/DL (12.0-16.0) L Hematocrit 40.8 % (37.0-47.0) 33.4 % (37.0-47.0) L Mean Corpuscular Volume 109 FL (80-99) H 109 FL (80-99) H Mean Corpuscular Hemoglobin 35.6 PG (27.0-31.0) H 36.0 PG (27.0-31.0) H Mean Corpuscular Hemoglobin Concent 32.6 G/DL (32.0-36.0) 33.1 G/DL (32.0-36.0) Red Cell Distribution Width 16.3 % (11.6-14.8) H 16.7 % (11.6-14.8) H Platelet Count 228 K/UL (150-450) 161 K/UL (150-450) Mean Platelet Volume 5.5 FL (6.5-10.1) L 5.7 FL (6.5-10.1) L Neutrophils (%) (Auto) 68.9 % (45.0-75.0) 65.9 % (45.0-75.0) Lymphocytes (%) (Auto) 21.8 % (20.0-45.0) 22.3 % (20.0-45.0) Monocytes (%) (Auto) 8.0 % (1.0-10.0) 10.1 % (1.0-10.0) H Eosinophils (%) (Auto) 0.1 % (0.0-3.0) 1.1 % (0.0-3.0) Basophils (%) (Auto) 1.3 % (0.0-2.0) 0.7 % (0.0-2.0) Sodium Level 139 MMOL/L (136-145) 137 MMOL/L (136-145) Potassium Level 3.3 MMOL/L (3.5-5.1) L 3.8 MMOL/L (3.5-5.1) Chloride Level 98 MMOL/L (98-107) 102 MMOL/L (98-107) Carbon Dioxide Level 8 MMOL/L (21-32) *L 22 MMOL/L (21-32) Anion Gap 33 mmol/L (5-15) H 13 mmol/L (5-15) Blood Urea Nitrogen 14 mg/dL (7-18) 8 mg/dL (7-18) Creatinine 0.9 MG/DL (0.55-1.30) 0.8 MG/DL (0.55-1.30) Estimat Glomerular Filtration Rate > 60 mL/min (>60) > 60 mL/min (>60) Glucose Level 51 MG/DL (74-106) L 103 MG/DL (74-106) Calcium Level 8.3 MG/DL (8.5-10.1) L 7.6 MG/DL (8.5-10.1) L Total Bilirubin 0.3 MG/DL (0.2-1.0) 0.5 MG/DL (0.2-1.0) Aspartate Amino Transf (AST/SGOT) 99 U/L (15-37) H 80 U/L (15-37) H Alanine Aminotransferase (ALT/SGPT) 59 U/L (12-78) 45 U/L (12-78) Alkaline Phosphatase 166 U/L (46-116) H 150 U/L (46-116) H Total Protein 6.9 G/DL (6.4-8.2) 5.7 G/DL (6.4-8.2) L Albumin 3.2 G/DL (3.4-5.0) L 2.5 G/DL (3.4-5.0) L Globulin 3.7 g/dL 3.2 g/dL Albumin/Globulin Ratio 0.9 (1.0-2.7) L 0.8 (1.0-2.7) L Salicylates Level 4.0 ug/mL (2.8-20) Acetaminophen Level < 2 MCG/ML (10-30) L Serum Alcohol 118 mg/dL Arterial Blood pH 7.310 (7.350-7.450) Arterial Blood Partial Pressure CO2 29.1 mmHg (35.0-45.0) L Arterial Blood Partial Pressure O2 72.1 mmHg (75.0-100.0) L Arterial Blood HCO3 14.3 mmol/L (22.0-26.0) L Arterial Blood Oxygen Saturation 91.5 % (92.0-98.0) L Arterial Blood Base Excess -10.5 Pravin Test Positive Urine Color Pale yellow Urine Appearance Clear Urine pH 5 (4.5-8.0) Urine Specific [place] 1.020 (1.005-1.035) Urine Protein Negative (NEGATIVE) Urine Glucose (UA) Negative (NEGATIVE) Urine Ketones 4+ (NEGATIVE) H Urine Occult Blood Negative (NEGATIVE) Urine Nitrite Negative (NEGATIVE) Urine Bilirubin Negative (NEGATIVE) Urine Urobilinogen Normal MG/DL (0.0-1.0) Urine Leukocyte Esterase Negative (NEGATIVE) Urine Opiates Screen Negative (NEGATIVE) Urine Barbiturates Screen Negative (NEGATIVE) Phencyclidine (PCP) Screen Negative (NEGATIVE) Urine Amphetamines Screen Negative (NEGATIVE) Urine Benzodiazepines Screen Negative (NEGATIVE) Urine Cocaine Screen Negative (NEGATIVE) Urine Marijuana (THC) Screen Negative (NEGATIVE) Height (Feet): 5 Height (Inches): 2.00 Weight (Pounds): 110 Medications Current Medications Medications (Trade) Dose Ordered Sig/Matthew Route PRN Reason Start Time Stop Time Status Last Admin Dose Admin Acetaminophen (Tylenol) 650 mg Q4H PRN ORAL T>100.5 09/15/17 16:15 10/15/17 16:14 Al Hydroxide/Mg Hydroxide (Mylanta II) 30 ml Q6H PRN ORAL dyspepsia 09/15/17 16:15 10/15/17 16:14 Buspirone HCl (Buspar) 5 mg Q12HR ORAL 09/16/17 09:00 10/16/17 08:59 09/16/17 09:22 Chlordiazepoxide (Librium) 25 mg Q6H PRN ORAL Agitation 09/15/17 20:00 09/22/17 19:59 Dextrose (Dextrose 50%) STAT PRN IV Hypoglycemia 09/15/17 16:15 10/15/17 16:14 Folic Acid 1 mg/ Magnesium Sulfate 2000 mg/ Multivitamins 10 ml/Sodium Chloride 1,014.2 ml @ 125 mls/ hr Q24H IV 09/15/17 18:00 10/15/17 17:59 09/15/17 18:40 Heparin Sodium (Porcine) (Heparin 5000 units/ml) 5,000 units EVERY 12 HOURS SUBQ 09/15/17 21:00 10/15/17 20:59 09/16/17 09:24 Lorazepam (Ativan 2mg/ml 1ml) 2 mg Q1H PRN IV SEIZURES 09/15/17 16:15 09/22/17 16:14 Morphine Sulfate (Morphine Sulfate) 1 mg Q4H PRN IVP PAIN 4-10 09/15/17 16:15 09/22/17 16:14 Nicotine (Nicoderm) 1 patch Q24H TDERMAL 09/16/17 11:30 10/16/17 11:29 Ondansetron HCl (Zofran) 4 mg Q6H PRN IVP Nausea & Vomiting 09/15/17 16:15 10/15/17 16:14 Polyethylene Glycol (Miralax) 17 gm HSPRN PRN ORAL Constipation 09/15/17 21:00 10/15/17 20:59 Thiamine HCl 100 mg/Sodium Chloride 56 ml @ 112 mls/hr Q24H IVPB 09/15/17 18:00 10/15/17 17:59 09/15/17 18:40 Trazodone HCl (Desyrel) 50 mg BEDTIME ORAL 09/15/17 21:00 10/15/17 20:59 09/15/17 22:19 Venlafaxine HCl (Effexor-XR) 150 mg DAILY ORAL 09/16/17 09:00 10/16/17 08:59 09/16/17 09:22 Zolpidem Tartrate (Ambien) 5 mg HSPRN PRN ORAL Insomnia 09/15/17 21:00 09/22/17 20:59 Nikki Gillespie M.D. Sep 16, 2017 11:27
--- NOTE | 2017-09-16 11:34 | Consultation ---
History of Present Illness General Date patient seen: Sep 16, 2017 Chief Complaint: General Complaint Reason for Consultation: inpatient management Present Illness HPI 67-year-old female, history of alcohol abuse, here for alcohol withdraw . Patient states that she has been drinking every day Feeling slightly tremulous right now. Episode of vomiting earlier today. No fever chills chest pain or abdominal pain currently. Pt is admitted for ETOH withdraw. Allergies: Coded Allergies: No Known Allergies (Unverified , 09/13/17) Medication History Scheduled Buspirone Hcl* (Buspirone Hcl*), 10 MG ORAL DAILY, (Reported) Ibuprofen* (Motrin*), 800 MG ORAL Q8HR, (Reported) Magnesium Oxide (Magnesium), 400 MG PO DAILY, (Reported) Multivitamins* (Multivitamins*), 1 TAB ORAL DAILY, (Reported) Pantoprazole* (Pantoprazole*), 40 MG ORAL DAILY, (Reported) Trazodone* (Trazodone*), 50 MG ORAL BEDTIME, (Reported) Venlafaxine Hcl* (Venlafaxine Hcl Er*), 150 MG ORAL DAILY, (Reported) Patient History Healthcare decision maker Resuscitation status Full Code Advanced Directive on File No Past Medical/Surgical History Past Medical/Surgical History: (1) Depression (2) Alcohol dependence Review of Systems Constitutional: Reports: no symptoms Eye: Reports: no symptoms Physical Exam General Appearance: WD/WN, no apparent distress Lines, tubes and drains: peripheral, central line HEENT: normocephalic, atraumatic Neck: non-tender, normal alignment Respiratory/Chest: chest wall non-tender, normal breath sounds Cardiovascular/Chest: normal peripheral pulses Abdomen: normal bowel sounds Last 24 Hour Vital Signs Date Time Temp Pulse Resp B/P (MAP) Pulse Ox O2 Delivery O2 Flow Rate FiO2 09/16/17 08:00 97.9 99 20 118/76 99 Room Air 09/16/17 04:00 98.2 102 20 135/80 94 Room Air 102 09/16/17 04:00 100 09/16/17 00:00 97.4 100 12 129/80 97 Room Air 09/16/17 00:00 107 09/15/17 20:00 97.9 110 20 119/84 95 Room Air 09/15/17 20:00 125 09/15/17 18:01 97.0 128 18 119/81 98 Room Air 09/15/17 17:26 97.5 111 20 134/92 95 Room Air 09/15/17 14:26 111 20 134/92 95 Room Air 09/15/17 13:45 97.5 122 16 147/64 97 Room Air Intake and Output 09/15/17 09/16/17 19:00 07:00 Intake Total 170 ml 400 ml Balance 170 ml 400 ml Intake Oral 170 ml 400 ml # Voids 1 Laboratory Tests Test 09/15/17 14:20 09/15/17 15:50 09/16/17 07:15 09/16/17 09:30 White Blood Count 7.6 K/UL (4.8-10.8) 4.8 K/UL (4.8-10.8) Red Blood Count 3.73 M/UL (4.20-5.40) L 3.07 M/UL (4.20-5.40) L Hemoglobin 13.3 G/DL (12.0-16.0) 11.0 G/DL (12.0-16.0) L Hematocrit 40.8 % (37.0-47.0) 33.4 % (37.0-47.0) L Mean Corpuscular Volume 109 FL (80-99) H 109 FL (80-99) H Mean Corpuscular Hemoglobin 35.6 PG (27.0-31.0) H 36.0 PG (27.0-31.0) H Mean Corpuscular Hemoglobin Concent 32.6 G/DL (32.0-36.0) 33.1 G/DL (32.0-36.0) Red Cell Distribution Width 16.3 % (11.6-14.8) H 16.7 % (11.6-14.8) H Platelet Count 228 K/UL (150-450) 161 K/UL (150-450) Mean Platelet Volume 5.5 FL (6.5-10.1) L 5.7 FL (6.5-10.1) L Neutrophils (%) (Auto) 68.9 % (45.0-75.0) 65.9 % (45.0-75.0) Lymphocytes (%) (Auto) 21.8 % (20.0-45.0) 22.3 % (20.0-45.0) Monocytes (%) (Auto) 8.0 % (1.0-10.0) 10.1 % (1.0-10.0) H Eosinophils (%) (Auto) 0.1 % (0.0-3.0) 1.1 % (0.0-3.0) Basophils (%) (Auto) 1.3 % (0.0-2.0) 0.7 % (0.0-2.0) Sodium Level 139 MMOL/L (136-145) 137 MMOL/L (136-145) Potassium Level 3.3 MMOL/L (3.5-5.1) L 3.8 MMOL/L (3.5-5.1) Chloride Level 98 MMOL/L (98-107) 102 MMOL/L (98-107) Carbon Dioxide Level 8 MMOL/L (21-32) *L 22 MMOL/L (21-32) Anion Gap 33 mmol/L (5-15) H 13 mmol/L (5-15) Blood Urea Nitrogen 14 mg/dL (7-18) 8 mg/dL (7-18) Creatinine 0.9 MG/DL (0.55-1.30) 0.8 MG/DL (0.55-1.30) Estimat Glomerular Filtration Rate > 60 mL/min (>60) > 60 mL/min (>60) Glucose Level 51 MG/DL (74-106) L 103 MG/DL (74-106) Calcium Level 8.3 MG/DL (8.5-10.1) L 7.6 MG/DL (8.5-10.1) L Total Bilirubin 0.3 MG/DL (0.2-1.0) 0.5 MG/DL (0.2-1.0) Aspartate Amino Transf (AST/SGOT) 99 U/L (15-37) H 80 U/L (15-37) H Alanine Aminotransferase (ALT/SGPT) 59 U/L (12-78) 45 U/L (12-78) Alkaline Phosphatase 166 U/L (46-116) H 150 U/L (46-116) H Total Protein 6.9 G/DL (6.4-8.2) 5.7 G/DL (6.4-8.2) L Albumin 3.2 G/DL (3.4-5.0) L 2.5 G/DL (3.4-5.0) L Globulin 3.7 g/dL 3.2 g/dL Albumin/Globulin Ratio 0.9 (1.0-2.7) L 0.8 (1.0-2.7) L Salicylates Level 4.0 ug/mL (2.8-20) Acetaminophen Level < 2 MCG/ML (10-30) L Serum Alcohol 118 mg/dL Arterial Blood pH 7.310 (7.350-7.450) Arterial Blood Partial Pressure CO2 29.1 mmHg (35.0-45.0) L Arterial Blood Partial Pressure O2 72.1 mmHg (75.0-100.0) L Arterial Blood HCO3 14.3 mmol/L (22.0-26.0) L Arterial Blood Oxygen Saturation 91.5 % (92.0-98.0) L Arterial Blood Base Excess -10.5 Pravin Test Positive Urine Color Pale yellow Urine Appearance Clear Urine pH 5 (4.5-8.0) Urine Specific [place] 1.020 (1.005-1.035) Urine Protein Negative (NEGATIVE) Urine Glucose (UA) Negative (NEGATIVE) Urine Ketones 4+ (NEGATIVE) H Urine Occult Blood Negative (NEGATIVE) Urine Nitrite Negative (NEGATIVE) Urine Bilirubin Negative (NEGATIVE) Urine Urobilinogen Normal MG/DL (0.0-1.0) Urine Leukocyte Esterase Negative (NEGATIVE) Urine Opiates Screen Negative (NEGATIVE) Urine Barbiturates Screen Negative (NEGATIVE) Phencyclidine (PCP) Screen Negative (NEGATIVE) Urine Amphetamines Screen Negative (NEGATIVE) Urine Benzodiazepines Screen Negative (NEGATIVE) Urine Cocaine Screen Negative (NEGATIVE) Urine Marijuana (THC) Screen Negative (NEGATIVE) Height (Feet): 5 Height (Inches): 2.00 Weight (Pounds): 110 Medications Current Medications Medications (Trade) Dose Ordered Sig/Matthew Route PRN Reason Start Time Stop Time Status Last Admin Dose Admin Acetaminophen (Tylenol) 650 mg Q4H PRN ORAL T>100.5 09/15/17 16:15 10/15/17 16:14 Al Hydroxide/Mg Hydroxide (Mylanta II) 30 ml Q6H PRN ORAL dyspepsia 09/15/17 16:15 10/15/17 16:14 Buspirone HCl (Buspar) 5 mg Q12HR ORAL 09/16/17 09:00 10/16/17 08:59 09/16/17 09:22 Chlordiazepoxide (Librium) 25 mg Q6H PRN ORAL Agitation 09/15/17 20:00 09/22/17 19:59 Dextrose (Dextrose 50%) STAT PRN IV Hypoglycemia 09/15/17 16:15 10/15/17 16:14 Folic Acid 1 mg/ Magnesium Sulfate 2000 mg/ Multivitamins 10 ml/Sodium Chloride 1,014.2 ml @ 125 mls/ hr Q24H IV 09/15/17 18:00 10/15/17 17:59 09/15/17 18:40 Heparin Sodium (Porcine) (Heparin 5000 units/ml) 5,000 units EVERY 12 HOURS SUBQ 09/15/17 21:00 10/15/17 20:59 09/16/17 09:24 Lorazepam (Ativan 2mg/ml 1ml) 2 mg Q1H PRN IV SEIZURES 09/15/17 16:15 09/22/17 16:14 Morphine Sulfate (Morphine Sulfate) 1 mg Q4H PRN IVP PAIN 4-10 09/15/17 16:15 09/22/17 16:14 Nicotine (Nicoderm) 1 patch Q24H TDERMAL 09/16/17 11:30 10/16/17 11:29 Ondansetron HCl (Zofran) 4 mg Q6H PRN IVP Nausea & Vomiting 09/15/17 16:15 10/15/17 16:14 Polyethylene Glycol (Miralax) 17 gm HSPRN PRN ORAL Constipation 09/15/17 21:00 10/15/17 20:59 Quetiapine Fumarate (SEROquel) 50 mg BEDTIME ORAL 09/16/17 21:00 10/16/17 20:59 UNV Thiamine HCl 100 mg/Sodium Chloride 56 ml @ 112 mls/hr Q24H IVPB 09/15/17 18:00 10/15/17 17:59 09/15/17 18:40 Venlafaxine HCl (Effexor-XR) 225 mg DAILY ORAL 09/17/17 09:00 10/17/17 08:59 UNV Zolpidem Tartrate (Ambien) 5 mg HSPRN PRN ORAL Insomnia 09/15/17 21:00 09/22/17 20:59 Assessment/Plan Problem List: (1) Alcohol withdrawal ICD Codes: F10.239 - Alcohol dependence with withdrawal, unspecified SNOMED: 585467706 (2) Depression ICD Codes: F32.9 - Major depressive disorder, single episode, unspecified SNOMED: 38100990 Assessment/Plan iv fluids banana bag psych evaluation check electrolytes ENDY KIRK Sep 16, 2017 11:34
[2017-09-16 12:00] VITALS: BP 127/86
--- NOTE | 2017-09-16 12:11 | History & Physical ---
History and Physical History & Physicial Dictated for Int Med-Dr Pittman no. [id number]. SHANON CARBAJAL Sep 16, 2017 12:11
[2017-09-16 12:46] LABS: AMYLASE 27 U/L (25-115)
[2017-09-16 16:00] VITALS: BP 111/80
[2017-09-16] MEDS ORDERED: Folic Acid 1 MG, Magnesium Sulfate 2,000 MG, Multivitamin - 12 Injection 10 ML in NS w/... IV SCH (16:00)
[2017-09-16] MEDS ORDERED: Mylanta II UD 30ml ORAL PRN (18:00)
[2017-09-16] MEDS ORDERED: LORazepam Inj 2mg/ml 1ml IV PRN (18:15)
[2017-09-16] MEDS: Thiamine HCl 100 MG in NS 55 ML IVPB SCH (18:29)
[2017-09-16] MEDS: Folic Acid 1 MG, Magnesium Sulfate 2,000 MG, Multivitamin - 12 Injection 10 ML in NS w/... IV SCH (18:30)
[2017-09-16 20:00] VITALS: BP 158/98
[2017-09-16] MEDS: Morphine Sulfate 2mg/ml Inj IVP PRN (20:31)
[2017-09-16] MEDS: chlordiazePOXIDE 25mg Cap ORAL PRN (20:34)
[2017-09-16] MEDS ORDERED: Miralax 17gm pkt ORAL PRN (21:00)
[2017-09-16] MEDS: BusPIRone 5mg Tab ORAL SCH (22:29)
[2017-09-17] VITALS: BP 101/58
[2017-09-17] MEDS: Zolpidem 5mg tab ORAL PRN (02:06)
[2017-09-17 04:00] VITALS: BP 130/84
[2017-09-17 07:29] LABS: HEMATOCRIT 34.5 % (37.0-47.0); HEMOGLOBIN 10.9 G/DL (12.0-16.0); MEAN CORPUSCULAR VOLUME 111 FL (80-99); PLATELET COUNT 127 K/UL (150-450); RED CELL DISTRIBUTION WIDTH 16.9 % (11.6-14.8); WHITE BLOOD COUNT 3.5 K/UL (4.8-10.8)
[2017-09-17 07:53] LABS: ALANINE AMINOTRANSFERASE 54 U/L (12-78); ALBUMIN 2.4 G/DL (3.4-5.0); ALBUMIN/GLOBULIN RATIO 0.8 (1.0-2.7); ALKALINE PHOSPHATASE 145 U/L (46-116); ANION GAP 6 mmol/L (5-15); ASPARTATE AMINO TRANSFERASE 116 U/L (15-37); BILIRUBIN,TOTAL 0.4 MG/DL (0.2-1.0); BLOOD UREA NITROGEN 4 mg/dL (7-18); CALCIUM 7.9 MG/DL (8.5-10.1); CARBON DIOXIDE 30 MMOL/L (21-32); CHLORIDE 105 MMOL/L (98-107); CREATININE 0.7 MG/DL (0.55-1.30); PHOSPHORUS 1.4 MG/DL (2.5-4.9); POTASSIUM 3.2 MMOL/L (3.5-5.1); SODIUM 141 MMOL/L (136-145)
[2017-09-17 08:00] VITALS: BP 132/95
[2017-09-17] MEDS: Heparin 5000 units/ml inj SUBQ SCH ×2 (08:03→21:00)
[2017-09-17] MEDS: BusPIRone 5mg Tab ORAL SCH ×2 (08:03→21:32)
[2017-09-17] MEDS: chlordiazePOXIDE 25mg Cap ORAL PRN ×3 (08:03→21:32)
[2017-09-17] MEDS ORDERED: Venlafaxine XR 75mg cap ORAL SCH (09:00)
[2017-09-17] MEDS: Venlafaxine XR 75mg cap ORAL SCH (10:50)
[2017-09-17] MEDS: Folic Acid 1 MG, Magnesium Sulfate 2,000 MG, Multivitamin - 12 Injection 10 ML in NS w/... IV SCH (11:11)
[2017-09-17] MEDS: Morphine Sulfate 2mg/ml Inj IVP PRN ×2 (11:52→17:18)
[2017-09-17 12:00] VITALS: BP 127/88
[2017-09-17 15:56] VITALS: BP 132/84
--- NOTE | 2017-09-17 15:59 | Pulmonology Progress Note ---
Assessment/Plan Problems: (1) Alcohol withdrawal (2) Depression Assessment/Plan iv fluids K and phos supplement check electrolytes psych evaluation Subjective ROS Limited/Unobtainable: No Constitutional: Reports: no symptoms HEENT: Repors: no symptoms Allergies: Coded Allergies: No Known Allergies (Unverified , 09/13/17) Objective Last 24 Hour Vital Signs Date Time Temp Pulse Resp B/P (MAP) Pulse Ox O2 Delivery O2 Flow Rate FiO2 09/17/17 15:56 97.6 93 21 132/84 97 Room Air 09/17/17 12:22 97.3 09/17/17 12:00 97.3 89 19 127/88 99 09/17/17 08:00 97.3 96 19 132/95 97 09/17/17 04:00 97.6 85 21 130/84 96 09/17/17 00:00 97.6 89 21 101/58 96 09/16/17 20:00 97.6 98 21 158/98 97 09/16/17 16:00 97.7 95 18 111/80 94 Room Air Intake and Output 09/16/17 09/17/17 19:00 07:00 Intake Total 725 ml 625 ml Balance 725 ml 625 ml Intake Oral 600 ml IV Total 125 ml 625 ml # Voids 5 2 General Appearance: WD/WN HEENT: normocephalic Respiratory/Chest: chest wall non-tender Breasts: no masses Cardiovascular: normal peripheral pulses, normal rate Abdomen: normal bowel sounds Genitourinary: normal external genitalia Skin: no rash 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 Complete Laboratory Tests 09/17/17 05:35: White Blood Count 3.5L, Red Blood Count 3.10L, Hemoglobin 10.9L, Hematocrit 34.5L, Mean Corpuscular Volume 111H, Mean Corpuscular Hemoglobin 35.1H, Mean Corpuscular Hemoglobin Concent 31.6L, Red Cell Distribution Width 16.9H, Platelet Count 127L, Mean Platelet Volume 5.8L, Neutrophils (%) (Auto) , Lymphocytes (%) (Auto) , Monocytes (%) (Auto) , Eosinophils (%) (Auto) , Basophils (%) (Auto) , Differential Total Cells Counted 100, Neutrophils % ( Manual) 47, Lymphocytes % (Manual) 47H, Monocytes % (Manual) 5, Eosinophils % ( Manual) 1, Basophils % (Manual) 0, Band Neutrophils 0, Platelet Estimate DecreasedL, Platelet Morphology Normal, Hypochromasia 1+, Anisocytosis 1+, Macrocytosis 1+, Stomatocytes Occasional, Sodium Level 141, Potassium Level 3.2L , Chloride Level 105, Carbon Dioxide Level 30, Anion Gap 6, Blood Urea Nitrogen 4L, Creatinine 0.7, Estimat Glomerular Filtration Rate > 60, Glucose Level 133H , Calcium Level 7.9L, Phosphorus Level 1.4L, Magnesium Level 2.3, Total Bilirubin 0.4, Aspartate Amino Transf (AST/SGOT) 116H, Alanine Aminotransferase (ALT/SGPT) 54, Alkaline Phosphatase 145H, Total Protein 5.6L, Albumin 2.4L, Globulin 3.2, Albumin/Globulin Ratio 0.8L Current Medications Medications (Trade) Dose Ordered Sig/Matthew Route PRN Reason Start Time Stop Time Status Last Admin Dose Admin Acetaminophen (Tylenol) 650 mg Q4H PRN ORAL T>100.5 09/16/17 18:00 10/15/17 17:59 Al Hydroxide/Mg Hydroxide (Mylanta II) 30 ml Q6H PRN ORAL dyspepsia 09/16/17 18:00 10/15/17 17:59 Buspirone HCl (Buspar) 5 mg Q12HR ORAL 09/16/17 21:00 10/16/17 08:59 09/17/17 08:03 Chlordiazepoxide (Librium) 25 mg Q6H PRN ORAL Agitation 09/16/17 18:00 09/22/17 17:59 09/17/17 14:14 Dextrose (Dextrose 50%) STAT PRN IV Hypoglycemia 09/16/17 18:00 10/16/17 17:59 Folic Acid 1 mg/ Magnesium Sulfate 2000 mg/ Multivitamins 10 ml/Sodium Chloride 1,014.2 ml @ 125 mls/ hr Q24H IV 09/16/17 18:00 10/15/17 17:59 09/17/17 11:11 Heparin Sodium (Porcine) (Heparin 5000 units/ml) 5,000 units EVERY 12 HOURS SUBQ 09/16/17 21:00 10/15/17 20:59 09/16/17 20:37 Lorazepam (Ativan 2mg/ml 1ml) 2 mg Q1H PRN IV SEIZURES 09/16/17 18:15 09/22/17 16:14 Morphine Sulfate (Morphine Sulfate) 1 mg Q4H PRN IVP PAIN 4-10 09/16/17 18:00 09/22/17 17:59 09/17/17 11:52 Nicotine (Nicoderm) 1 patch Q24H TDERMAL 09/17/17 11:30 10/16/17 11:29 09/17/17 11:51 Ondansetron HCl (Zofran) 4 mg Q6H PRN IVP Nausea & Vomiting 09/16/17 18:00 10/15/17 17:59 09/17/17 14:15 Polyethylene Glycol (Miralax) 17 gm HSPRN PRN ORAL Constipation 09/16/17 21:00 10/15/17 20:59 Quetiapine Fumarate (SEROquel) 50 mg BEDTIME ORAL 09/16/17 21:00 10/16/17 20:59 09/16/17 20:35 Thiamine HCl 100 mg/Sodium Chloride 56 ml @ 112 mls/hr Q24H IVPB 09/16/17 18:00 10/15/17 17:59 09/16/17 18:29 Venlafaxine HCl (Effexor-XR) 225 mg DAILY ORAL 09/17/17 09:00 10/17/17 08:59 09/17/17 10:50 Zolpidem Tartrate (Ambien) 5 mg HSPRN PRN ORAL Insomnia 09/16/17 21:00 09/22/17 20:59 09/17/17 02:06 ENDY KIRK Sep 17, 2017 15:59
--- NOTE | 2017-09-17 16:00 | History and Physical Report ---
CHIEF COMPLAINT: The patient is a 67-year-old white female who presents with chief complaint of alcohol withdrawal symptoms. HISTORY OF PRESENT ILLNESS: The patient was evaluated by her primary care physician, Dr. Gaudencio Pittman, on 09/11/2017. The patient was told she needed inpatient detox from alcohol. The patient has history of alcoholic pancreatitis. The patient was admitted to [facility] around 2016. The patient stayed in the hospital for 1 week. The patient states this is the first rehabilitation. The patient drinks one-half to one bottle of 750 mL of vodka daily. The patient states she drinks all day long. The patient last drank on 09/15/2017. The patient presents with chief complaint of wishing to detoxify from alcohol. REVIEW OF SYSTEMS: CONSTITUTIONAL: The patient denies weight loss or weight gain. The patient denies fevers or chills. HEENT: The patient denies ear or throat pain. The patient denies headache. CARDIOVASCULAR: The patient denies palpitations or chest pain. CHEST: The patient denies wheeze or shortness of breath. ABDOMINAL: The patient denies nausea, vomiting, diarrhea, or constipation. GENITOURINARY: The patient denies dysuria or increased frequency of urination. NEUROMUSCULAR: The patient complains of uncontrolled seizures. The patient complains of tremulousness. The patient denies seizures or generalized weakness. PAST MEDICAL HISTORY: Significant for: 1. Alcoholic pancreatitis as above. 2. Major depression. PAST SURGICAL HISTORY: The patient denies. CURRENT MEDICATIONS: 1. BuSpar 10 mg p.o. twice daily. 2. Protonix 40 mg p.o. daily. 3. Trazodone 150 mg p.o. niightly. 4. Effexor 150 mg p.o. daily. ALLERGIES: No known drug allergies. SOCIAL HISTORY: The patient is and lives alone. The patient admits to tobacco use of one pack per day. The patient admits to alcohol use as above. The patient denies other drug abuse. PHYSICAL EXAMINATION: VITAL SIGNS: Temperature 97.9, respirations 20, pulse 110-125, blood pressure 119/84. GENERAL: The patient is a well-developed, well-nourished, thin-appearing white female, in no apparent distress. HEENT: Eyes, pupils equal and responsive to light and accommodation. Extraocular movements are intact. NECK: Supple without lymphadenopathy. CHEST: Lungs are clear to auscultation bilaterally without wheezes or rales. CARDIOVASCULAR: Regular rate. S1, S2 normal without murmurs, rubs, or gallops. ABDOMEN: Soft, nontender, nondistended. Positive bowel sounds. No evidence of hepatosplenomegaly. Currently, no rebound or guarding noted. EXTREMITIES: Negative for clubbing, cyanosis, or edema. RECTAL: Refused. GENITAL: Refused. NEUROLOGICAL: The patient does have resting tremor. Cranial nerves II through XII are grossly intact without focal deficits. Motor strength is 5/5 bilaterally. Deep tendon reflexes are 2+, plantar. LABORATORY STUDIES: WBC 7.6, hemoglobin 13.3, hematocrit 40.8, platelets 228,000. Sodium 139, potassium 3.3, chloride 98, CO2 8, BUN 14, creatinine 0.9, glucose 51. ASSESSMENT AND PLAN: This is a 67-year-old white female with: 1. Alcohol dependence. 2. 3. Alcoholic pancreatitis. 4. Major depression. TREATMENT: 1. Alcohol dependence/withdrawal. Neurology consultation has been obtained with Dr. Brumfield. Psychiatric consultation has been obtained with Dr. Gillespie. The patient is currently being offered Ativan intravenously q.3-4 h. We will follow recommendations of Psychiatry and Neurology as above. 2. Alcoholic pancreatitis. A serum lipase level is pending. Serum amylase is pending. We will follow recommendations of Gastroenterology, Dr. Mcknight. 3. Major depression. Continue Effexor as above. Earl Suárez M.D. DR: Gabriela JOB#: [id number] CC:
[2017-09-17] MEDS ORDERED: Potassium Phosphate 30 MM in Sodium Chloride 500ML 550 ML IV ONE (17:30)
--- NOTE | 2017-09-17 17:49 | Cardiology Report ---
APPROVED REPORT EKG Measurement Heart [id number] Sinus tachycardia Left anterior fascicular block Abnormal ECG
--- NOTE | 2017-09-17 18:08 | Internal Med Progress Note ---
Subjective Date of Service: Sep 17, 2017 Physician Name Earl Carbajal Attending Physician Gaudencio Pittman MD Current Medications Medications (Trade) Dose Ordered Sig/Matthew Route PRN Reason Start Time Stop Time Status Last Admin Dose Admin Acetaminophen (Tylenol) 650 mg Q4H PRN ORAL T>100.5 09/16/17 18:00 10/15/17 17:59 Al Hydroxide/Mg Hydroxide (Mylanta II) 30 ml Q6H PRN ORAL dyspepsia 09/16/17 18:00 10/15/17 17:59 Buspirone HCl (Buspar) 5 mg Q12HR ORAL 09/16/17 21:00 10/16/17 08:59 09/17/17 08:03 Chlordiazepoxide (Librium) 25 mg Q6H PRN ORAL Agitation 09/16/17 18:00 09/22/17 17:59 09/17/17 14:14 Dextrose (Dextrose 50%) STAT PRN IV Hypoglycemia 09/16/17 18:00 10/16/17 17:59 Folic Acid 1 mg/ Magnesium Sulfate 2000 mg/ Multivitamins 10 ml/Sodium Chloride 1,014.2 ml @ 125 mls/ hr Q24H IV 09/16/17 18:00 10/15/17 17:59 09/17/17 11:11 Heparin Sodium (Porcine) (Heparin 5000 units/ml) 5,000 units EVERY 12 HOURS SUBQ 09/16/17 21:00 10/15/17 20:59 09/16/17 20:37 Lorazepam (Ativan 2mg/ml 1ml) 2 mg Q1H PRN IV SEIZURES 09/16/17 18:15 09/22/17 16:14 Morphine Sulfate (Morphine Sulfate) 1 mg Q4H PRN IVP PAIN 4-10 09/16/17 18:00 09/22/17 17:59 09/17/17 17:18 Nicotine (Nicoderm) 1 patch Q24H TDERMAL 09/17/17 11:30 10/16/17 11:29 09/17/17 11:51 Ondansetron HCl (Zofran) 4 mg Q6H PRN IVP Nausea & Vomiting 09/16/17 18:00 10/15/17 17:59 09/17/17 14:15 Polyethylene Glycol (Miralax) 17 gm HSPRN PRN ORAL Constipation 09/16/17 21:00 10/15/17 20:59 Potassium Phosphate 30 mm/ Sodium Chloride 560 ml @ 93.3 mls/hr ONCE ONCE IV 09/17/17 17:30 09/17/17 23:30 09/17/17 17:17 Quetiapine Fumarate (SEROquel) 50 mg BEDTIME ORAL 09/16/17 21:00 10/16/17 20:59 09/16/17 20:35 Thiamine HCl 100 mg/Sodium Chloride 56 ml @ 112 mls/hr Q24H IVPB 09/16/17 18:00 10/15/17 17:59 09/16/17 18:29 Venlafaxine HCl (Effexor-XR) 225 mg DAILY ORAL 09/17/17 09:00 10/17/17 08:59 09/17/17 10:50 Zolpidem Tartrate (Ambien) 5 mg HSPRN PRN ORAL Insomnia 09/16/17 21:00 09/22/17 20:59 09/17/17 02:06 Allergies: Coded Allergies: No Known Allergies (Unverified , 09/13/17) ROS Limited/Unobtainable: No Constitutional: Reports: no symptoms HEENT: Reports: no symptoms Cardiovascular: Reports: no symptoms Respiratory: Reports: no symptoms Gastrointestinal/Abdominal: Reports: no symptoms Genitourinary: Reports: no symptoms Neurologic/Psychiatric: Reports: tremors Subjective 67 YO F admitted with alcohol withdrawal symptoms. Cover for Int Med Dr. Pittman Objective Last Vital Signs Date Time Temp Pulse Resp B/P (MAP) Pulse Ox O2 Delivery O2 Flow Rate FiO2 09/17/17 15:56 97.6 93 21 132/84 97 Room Air General Appearance: WD/WN, no apparent distress, alert EENT: PERRL/EOMI, normal ENT inspection, TMs normal Neck: non-tender, normal alignment, supple, normal inspection Cardiovascular: normal peripheral pulses, normal rate, regular rhythm, no gallop/murmur Respiratory/Chest: chest wall non-tender, lungs clear, normal breath sounds, no respiratory distress, no accessory muscle use Abdomen: normal bowel sounds, non tender, soft, no organomegaly, no mass Extremities: normal range of motion 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, no motor/sensory deficits, other - resting tremor Skin: normal pigmentation, warm/dry Laboratory Tests Test 09/17/17 05:35 White Blood Count 3.5 K/UL (4.8-10.8) L Red Blood Count 3.10 M/UL (4.20-5.40) L Hemoglobin 10.9 G/DL (12.0-16.0) L Hematocrit 34.5 % (37.0-47.0) L Mean Corpuscular Volume 111 FL (80-99) H Mean Corpuscular Hemoglobin 35.1 PG (27.0-31.0) H Mean Corpuscular Hemoglobin Concent 31.6 G/DL (32.0-36.0) L Red Cell Distribution Width 16.9 % (11.6-14.8) H Platelet Count 127 K/UL (150-450) L Mean Platelet Volume 5.8 FL (6.5-10.1) L Neutrophils (%) (Auto) % (45.0-75.0) Lymphocytes (%) (Auto) % (20.0-45.0) Monocytes (%) (Auto) % (1.0-10.0) Eosinophils (%) (Auto) % (0.0-3.0) Basophils (%) (Auto) % (0.0-2.0) Differential Total Cells Counted 100 Neutrophils % (Manual) 47 % (45-75) Lymphocytes % (Manual) 47 % (20-45) H Monocytes % (Manual) 5 % (1-10) Eosinophils % (Manual) 1 % (0-3) Basophils % (Manual) 0 % (0-2) Band Neutrophils 0 % (0-8) Platelet Estimate Decreased L Platelet Morphology Normal Hypochromasia 1+ Anisocytosis 1+ Macrocytosis 1+ Stomatocytes Occasional Sodium Level 141 MMOL/L (136-145) Potassium Level 3.2 MMOL/L (3.5-5.1) L Chloride Level 105 MMOL/L (98-107) Carbon Dioxide Level 30 MMOL/L (21-32) Anion Gap 6 mmol/L (5-15) Blood Urea Nitrogen 4 mg/dL (7-18) L Creatinine 0.7 MG/DL (0.55-1.30) Estimat Glomerular Filtration Rate > 60 mL/min (>60) Glucose Level 133 MG/DL (74-106) H Calcium Level 7.9 MG/DL (8.5-10.1) L Phosphorus Level 1.4 MG/DL (2.5-4.9) L Magnesium Level 2.3 MG/DL (1.8-2.4) Total Bilirubin 0.4 MG/DL (0.2-1.0) Aspartate Amino Transf (AST/SGOT) 116 U/L (15-37) H Alanine Aminotransferase (ALT/SGPT) 54 U/L (12-78) Alkaline Phosphatase 145 U/L (46-116) H Total Protein 5.6 G/DL (6.4-8.2) L Albumin 2.4 G/DL (3.4-5.0) L Globulin 3.2 g/dL Albumin/Globulin Ratio 0.8 (1.0-2.7) L Microbiology Date/Time Source Procedure Growth Status 09/15/17 16:43 Nasal Nares MRSA Culture - Final Staphylococcus Aureus - Mrsa Complete 09/15/17 16:43 Rectum VRE Culture - Final NO VANCOMYCIN RESISTANT ENTEROCOCCUS ... Complete Intake and Output 09/16/17 09/17/17 19:00 07:00 Intake Total 725 ml 625 ml Balance 725 ml 625 ml Intake Oral 600 ml IV Total 125 ml 625 ml # Voids 5 2 Assessment/Plan Problem List: (1) Alcoholic pancreatitis Assessment & Plan: Amylase and lipase normal. See GI note. (2) Major depression Assessment & Plan: See psych note. (3) Alcohol dependence (4) Alcohol withdrawal Assessment & Plan: Continue prn IV ativan and oral librium Assessment/Plan Discharge planning. Patient does not give permission to discuss her case with her brother, Mr Gil. EARL CARBAJAL Sep 17, 2017 18:08
[2017-09-17 20:00] VITALS: BP 131/93
[2017-09-18] VITALS: BP 86/54
[2017-09-18] MEDS: Thiamine HCl 100 MG in NS 55 ML IVPB SCH (00:43)
--- NOTE | 2017-09-18 02:45 | Progress Note ---
DATE: 09/17/2017 SUBJECTIVE: The patient continues to be depressed, tearful, has anhedonia, worthlessness, hopelessness, and decreased energy. MENTAL STATUS EXAMINATION: The patient is alert and oriented x4. Mood is depressed. Affect is constricted. Congruent with mood. Thought process is concrete. Thought content, no suicidal or homicidal ideations. ASSESSMENT: 1. Depression. 2. Alcohol dependence. PLAN: 1. We will continue the Librium. 2. Continue the Effexor. 3. Continue to provide the patient with supportive therapy and reality orientation. 4. We will continue to follow and readjust the medications. Nikki Gillespie M.D. DR: Dwight JOB#: [id number] CC:
[2017-09-18] MEDS: Zolpidem 5mg tab ORAL PRN (03:09)
[2017-09-18 04:00] VITALS: BP 101/71
[2017-09-18] MEDS: Venlafaxine XR 75mg cap ORAL SCH (08:30)
[2017-09-18] MEDS: BusPIRone 5mg Tab ORAL SCH (08:30)
[2017-09-18] MEDS: Heparin 5000 units/ml inj SUBQ SCH (08:31)
[2017-09-18 08:32] VITALS: BP 127/78
[2017-09-18 08:35] LABS: HEMATOCRIT 35.6 % (37.0-47.0); MEAN CORPUSCULAR VOLUME 114 FL (80-99); PLATELET COUNT 132 K/UL (150-450); RED BLOOD COUNT 3.13 M/UL (4.20-5.40); RED CELL DISTRIBUTION WIDTH 17.5 % (11.6-14.8); WHITE BLOOD COUNT 3.9 K/UL (4.8-10.8)
[2017-09-18 09:59] LABS: ALANINE AMINOTRANSFERASE 120 U/L (12-78); ALBUMIN 2.5 G/DL (3.4-5.0); ALBUMIN/GLOBULIN RATIO 0.7 (1.0-2.7); ALKALINE PHOSPHATASE 139 U/L (46-116); ANION GAP 7 mmol/L (5-15); ASPARTATE AMINO TRANSFERASE 187 U/L (15-37); BILIRUBIN,TOTAL 0.4 MG/DL (0.2-1.0); BLOOD UREA NITROGEN 3 mg/dL (7-18); CALCIUM 8.3 MG/DL (8.5-10.1); CARBON DIOXIDE 27 MMOL/L (21-32); CHLORIDE 106 MMOL/L (98-107); CREATININE 0.7 MG/DL (0.55-1.30); PHOSPHORUS 2.8 MG/DL (2.5-4.9); POTASSIUM 4.1 MMOL/L (3.5-5.1); SODIUM 140 MMOL/L (136-145)
[2017-09-18] MEDS: chlordiazePOXIDE 25mg Cap ORAL PRN (09:59)
[2017-09-18 11:30] VITALS: BP 133/84
--- NOTE | 2017-09-18 12:41 | Internal Med Progress Note ---
Subjective Date of Service: Sep 18, 2017 Physician Name Earl Carbajal Attending Physician Gaudencio Pittman MD Current Medications Medications (Trade) Dose Ordered Sig/Matthew Route PRN Reason Start Time Stop Time Status Last Admin Dose Admin Acetaminophen (Tylenol) 650 mg Q4H PRN ORAL T>100.5 09/16/17 18:00 10/15/17 17:59 Al Hydroxide/Mg Hydroxide (Mylanta II) 30 ml Q6H PRN ORAL dyspepsia 09/16/17 18:00 10/15/17 17:59 Buspirone HCl (Buspar) 5 mg Q12HR ORAL 09/16/17 21:00 10/16/17 08:59 09/18/17 08:30 Chlordiazepoxide (Librium) 25 mg Q6H PRN ORAL Agitation 09/16/17 18:00 09/22/17 17:59 09/18/17 09:59 Dextrose (Dextrose 50%) STAT PRN IV Hypoglycemia 09/16/17 18:00 10/16/17 17:59 Folic Acid 1 mg/ Magnesium Sulfate 2000 mg/ Multivitamins 10 ml/Sodium Chloride 1,014.2 ml @ 125 mls/ hr Q24H IV 09/16/17 18:00 10/15/17 17:59 09/17/17 11:11 Heparin Sodium (Porcine) (Heparin 5000 units/ml) 5,000 units EVERY 12 HOURS SUBQ 09/16/17 21:00 10/15/17 20:59 09/16/17 20:37 Lorazepam (Ativan 2mg/ml 1ml) 2 mg Q1H PRN IV SEIZURES 09/16/17 18:15 09/22/17 16:14 Morphine Sulfate (Morphine Sulfate) 1 mg Q4H PRN IVP PAIN 4-10 09/16/17 18:00 09/22/17 17:59 09/17/17 17:18 Nicotine (Nicoderm) 1 patch Q24H TDERMAL 09/17/17 11:30 10/16/17 11:29 09/18/17 11:49 Ondansetron HCl (Zofran) 4 mg Q6H PRN IVP Nausea & Vomiting 09/16/17 18:00 10/15/17 17:59 09/17/17 14:15 Polyethylene Glycol (Miralax) 17 gm HSPRN PRN ORAL Constipation 09/16/17 21:00 10/15/17 20:59 Quetiapine Fumarate (SEROquel) 50 mg BEDTIME ORAL 09/16/17 21:00 10/16/17 20:59 09/17/17 21:32 Thiamine HCl 100 mg/Sodium Chloride 56 ml @ 112 mls/hr Q24H IVPB 09/16/17 18:00 10/15/17 17:59 09/18/17 00:43 Venlafaxine HCl (Effexor-XR) 225 mg DAILY ORAL 09/17/17 09:00 10/17/17 08:59 09/18/17 08:30 Zolpidem Tartrate (Ambien) 5 mg HSPRN PRN ORAL Insomnia 09/16/17 21:00 09/22/17 20:59 09/18/17 03:09 Allergies: Coded Allergies: No Known Allergies (Unverified , 09/13/17) ROS Limited/Unobtainable: No Constitutional: Reports: no symptoms HEENT: Reports: no symptoms Cardiovascular: Reports: no symptoms Respiratory: Reports: no symptoms Gastrointestinal/Abdominal: Reports: no symptoms Genitourinary: Reports: no symptoms Neurologic/Psychiatric: Reports: tremors Subjective 67 YO F admitted with alcohol withdrawal symptoms. Cover for Int Med Dr. Pittman. Tearful "I just want to be knocked out" Objective Last Vital Signs Date Time Temp Pulse Resp B/P (MAP) Pulse Ox O2 Delivery O2 Flow Rate FiO2 09/18/17 11:30 97.5 86 19 133/84 98 09/17/17 15:56 Room Air Laboratory Tests Test 09/18/17 07:25 White Blood Count 3.9 K/UL (4.8-10.8) L Red Blood Count 3.13 M/UL (4.20-5.40) L Hemoglobin 11.0 G/DL (12.0-16.0) L Hematocrit 35.6 % (37.0-47.0) L Mean Corpuscular Volume 114 FL (80-99) H Mean Corpuscular Hemoglobin 34.9 PG (27.0-31.0) H Mean Corpuscular Hemoglobin Concent 30.8 G/DL (32.0-36.0) L Red Cell Distribution Width 17.5 % (11.6-14.8) H Platelet Count 132 K/UL (150-450) L Mean Platelet Volume 6.5 FL (6.5-10.1) Neutrophils (%) (Auto) % (45.0-75.0) Lymphocytes (%) (Auto) % (20.0-45.0) Monocytes (%) (Auto) % (1.0-10.0) Eosinophils (%) (Auto) % (0.0-3.0) Basophils (%) (Auto) % (0.0-2.0) Differential Total Cells Counted 100 Neutrophils % (Manual) 64 % (45-75) Lymphocytes % (Manual) 28 % (20-45) Monocytes % (Manual) 5 % (1-10) Eosinophils % (Manual) 3 % (0-3) Basophils % (Manual) 0 % (0-2) Band Neutrophils 0 % (0-8) Platelet Estimate Decreased L Platelet Morphology Normal Hypochromasia 2+ Anisocytosis 1+ Macrocytosis 1+ Stomatocytes Occasional Sodium Level 140 MMOL/L (136-145) Potassium Level 4.1 MMOL/L (3.5-5.1) Chloride Level 106 MMOL/L (98-107) Carbon Dioxide Level 27 MMOL/L (21-32) Anion Gap 7 mmol/L (5-15) Blood Urea Nitrogen 3 mg/dL (7-18) L Creatinine 0.7 MG/DL (0.55-1.30) Estimat Glomerular Filtration Rate > 60 mL/min (>60) Glucose Level 102 MG/DL (74-106) Calcium Level 8.3 MG/DL (8.5-10.1) L Phosphorus Level 2.8 MG/DL (2.5-4.9) Magnesium Level 2.2 MG/DL (1.8-2.4) Total Bilirubin 0.4 MG/DL (0.2-1.0) Aspartate Amino Transf (AST/SGOT) 187 U/L (15-37) H Alanine Aminotransferase (ALT/SGPT) 120 U/L (12-78) H Alkaline Phosphatase 139 U/L (46-116) H Total Protein 5.9 G/DL (6.4-8.2) L Albumin 2.5 G/DL (3.4-5.0) L Globulin 3.4 g/dL Albumin/Globulin Ratio 0.7 (1.0-2.7) L Microbiology Date/Time Source Procedure Growth Status 09/15/17 16:43 Nasal Nares MRSA Culture - Final Staphylococcus Aureus - Mrsa Complete 09/15/17 16:43 Rectum VRE Culture - Final NO VANCOMYCIN RESISTANT ENTEROCOCCUS ... Complete Intake and Output 09/17/17 09/18/17 19:00 07:00 Intake Total 990 ml Output Total 4 ml Balance 990 ml -4 ml Intake Oral 490 ml IV Total 500 ml Output Urine Total 4 ml # Voids 1 Objective General Appearance: WD/WN, no apparent distress, alert EENT: PERRL/EOMI, normal ENT inspection, TMs normal Neck: non-tender, normal alignment, supple, normal inspection Cardiovascular: normal peripheral pulses, normal rate, regular rhythm, no gallop/murmur Respiratory/Chest: chest wall non-tender, lungs clear, normal breath sounds, no respiratory distress, no accessory muscle use Abdomen: normal bowel sounds, non tender, soft, no organomegaly, no mass Extremities: normal range of motion 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 See GI note. (2) Major depression Assessment & Plan: See psych note. (3) Alcohol dependence (4) Alcohol withdrawal Assessment & Plan: Continue prn IV ativan and oral librium Status: not improved Assessment/Plan Discharge planning. Patient does not give permission to discuss her case with her brother, Mr Gil. EARL CARBAJAL Sep 18, 2017 12:41
--- NOTE | 2017-09-18 16:46 | Pulmonology Progress Note ---
Assessment/Plan Problems: (1) Alcohol withdrawal (2) Depression Assessment/Plan iv fluids K and phos supplement check electrolytes psych evaluation Subjective ROS Limited/Unobtainable: No Interval Events: seen earlier, no new complains Allergies: Coded Allergies: No Known Allergies (Unverified , 09/13/17) Objective Last 24 Hour Vital Signs Date Time Temp Pulse Resp B/P (MAP) Pulse Ox O2 Delivery O2 Flow Rate FiO2 09/18/17 11:30 97.5 86 19 133/84 98 09/18/17 08:32 97.8 89 19 127/78 98 09/18/17 04:00 97.5 82 20 101/71 95 09/18/17 00:00 97.6 59 20 86/54 95 09/17/17 20:00 97.6 97 21 131/93 96 09/17/17 17:48 97.6 Intake and Output 09/17/17 09/18/17 19:00 07:00 Intake Total 990 ml Output Total 4 ml Balance 990 ml -4 ml Intake Oral 490 ml IV Total 500 ml Output Urine Total 4 ml # Voids 1 Objective General Appearance: WD/WN HEENT: normocephalic, atraumatic Respiratory/Chest: chest wall non-tender, lungs clear Cardiovascular: normal peripheral pulses, normal rate Abdomen: normal bowel sounds, soft, non tender Genitourinary: normal external genitalia Extremities: no cyanosis 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, no motor/sensory deficits Lymphatic: no neck adenopathy Laboratory Tests 09/18/17 07:25: White Blood Count 3.9L, Red Blood Count 3.13L, Hemoglobin 11.0L, Hematocrit 35.6L, Mean Corpuscular Volume 114H, Mean Corpuscular Hemoglobin 34.9H, Mean Corpuscular Hemoglobin Concent 30.8L, Red Cell Distribution Width 17.5H, Platelet Count 132L, Mean Platelet Volume 6.5, Neutrophils (%) (Auto) , Lymphocytes (%) (Auto) , Monocytes (%) (Auto) , Eosinophils (%) (Auto) , Basophils (%) (Auto) , Differential Total Cells Counted 100, Neutrophils % ( Manual) 64, Lymphocytes % (Manual) 28, Monocytes % (Manual) 5, Eosinophils % ( Manual) 3, Basophils % (Manual) 0, Band Neutrophils 0, Platelet Estimate DecreasedL, Platelet Morphology Normal, Hypochromasia 2+, Anisocytosis 1+, Macrocytosis 1+, Stomatocytes Occasional, Sodium Level 140, Potassium Level 4.1 , Chloride Level 106, Carbon Dioxide Level 27, Anion Gap 7, Blood Urea Nitrogen 3L, Creatinine 0.7, Estimat Glomerular Filtration Rate > 60, Glucose Level 102, Calcium Level 8.3L, Phosphorus Level 2.8, Magnesium Level 2.2, Total Bilirubin 0.4, Aspartate Amino Transf (AST/SGOT) 187H, Alanine Aminotransferase (ALT/SGPT ) 120H, Alkaline Phosphatase 139H, Total Protein 5.9L, Albumin 2.5L, Globulin 3.4, Albumin/Globulin Ratio 0.7L Current Medications Medications (Trade) Dose Ordered Sig/Matthew Route PRN Reason Start Time Stop Time Status Last Admin Dose Admin Acetaminophen (Tylenol) 650 mg Q4H PRN ORAL T>100.5 09/16/17 18:00 10/15/17 17:59 Al Hydroxide/Mg Hydroxide (Mylanta II) 30 ml Q6H PRN ORAL dyspepsia 09/16/17 18:00 10/15/17 17:59 Buspirone HCl (Buspar) 5 mg Q12HR ORAL 09/16/17 21:00 10/16/17 08:59 09/18/17 08:30 Chlordiazepoxide (Librium) 25 mg Q6H PRN ORAL Agitation 09/16/17 18:00 09/22/17 17:59 09/18/17 09:59 Dextrose (Dextrose 50%) STAT PRN IV Hypoglycemia 09/16/17 18:00 10/16/17 17:59 Folic Acid 1 mg/ Magnesium Sulfate 2000 mg/ Multivitamins 10 ml/Sodium Chloride 1,014.2 ml @ 125 mls/ hr Q24H IV 09/16/17 18:00 10/15/17 17:59 09/17/17 11:11 Heparin Sodium (Porcine) (Heparin 5000 units/ml) 5,000 units EVERY 12 HOURS SUBQ 09/16/17 21:00 10/15/17 20:59 09/16/17 20:37 Lorazepam (Ativan 2mg/ml 1ml) 2 mg Q1H PRN IV SEIZURES 09/16/17 18:15 1/21/18 16:14 Morphine Sulfate (Morphine Sulfate) 1 mg Q4H PRN IVP PAIN 4-10 09/16/17 18:00 09/22/17 17:59 09/17/17 17:18 Nicotine (Nicoderm) 1 patch Q24H TDERMAL 09/17/17 11:30 10/16/17 11:29 09/18/17 11:49 Ondansetron HCl (Zofran) 4 mg Q6H PRN IVP Nausea & Vomiting 09/16/17 18:00 10/15/17 17:59 09/17/17 14:15 Polyethylene Glycol (Miralax) 17 gm HSPRN PRN ORAL Constipation 09/16/17 21:00 10/15/17 20:59 Quetiapine Fumarate (SEROquel) 50 mg BEDTIME ORAL 09/16/17 21:00 10/16/17 20:59 09/17/17 21:32 Thiamine HCl 100 mg/Sodium Chloride 56 ml @ 112 mls/hr Q24H IVPB 09/16/17 18:00 10/15/17 17:59 09/18/17 00:43 Venlafaxine HCl (Effexor-XR) 225 mg DAILY ORAL 09/17/17 09:00 10/17/17 08:59 09/18/17 08:30 Zolpidem Tartrate (Ambien) 5 mg HSPRN PRN ORAL Insomnia 09/16/17 21:00 09/22/17 20:59 09/18/17 03:09 ENDY KIRK Sep 18, 2017 16:46
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
--- NOTE | 2017-09-19 15:57 | Discharge Summary ---
Discharge Summary Hospital Course Date of Admission Sep 15, 2017 at 16:33 Date of Discharge Sep 18, 2017 at 16:00 Admitting Diagnosis alc detox HPI Shital Garcia is a 67 year old female who was admitted on Sep 15, 2017 at 16:33 for Alcohol Detox Hospital Course [id number] Discharge Discharge Disposition Patient left AMA Discharge Diagnoses: Corinne Hubbard NP Sep 19, 2017 15:57
--- NOTE | 2017-09-19 20:15 | Discharge Summary 2 SIG ---
DATE OF ADMISSION: 09/15/2017 DATE OF DISCHARGE: 09/18/2017 CONSULTANTS: 1. Nikki Gillespie M.D. 2. Jean Claude Lira M.D. 3. Brennon Brumfield M.D. BRIEF HOSPITAL COURSE: The patient is a 67-year-old female who presented with chief complaint of alcohol withdrawal symptoms. The patient was evaluated by her primary care physician, Dr. Gaudencio Pittman on 09/11/2017 and she was told she needed inpatient detox from alcohol. The patient has a history of alcoholic pancreatitis and had admission to [facility] around 07/2017. The patient drinks 1.5 to 1 bottle of 750 mL of vodka daily and drinks all day long. Last alcohol intake was 09/15/2017. On evaluation at ED, the patient was tremulous. She was given Ativan and IV hydration. She was admitted to telemetry for alcohol withdrawal. Urine toxicology was negative. She was placed on banana bag and Librium as needed. She was given Effexor. The electrolytes were repleted. Full treatment was not carried out. The patient left against medical advice. FINAL DIAGNOSES: 1. Alcohol withdrawal. 2. Alcohol dependence. 3. Major depression. 4. Noncompliance as the patient signed out against medical advice. DISPOSITION: The patient left AMA. Earl Suárez M.D. I have been assigned to dictate discharge summary on this account and I was not involved in the patient's management. Corinne Hubbard N.P. DR: FABIAN JOB#: [id number] CC:
--- NOTE | 2017-09-23 08:30 | Consultation ---
DATE OF CONSULTATION: 09/16/2017 NEUROLOGICAL CONSULTATION CONSULTING PHYSICIAN: Brennon Brumfield M.D. ATTENDING/REQUESTING PHYSICIAN: Gaudencio Pittman M.D. HISTORY OF PRESENT ILLNESS: The patient is a 67-year-old female seen in neurological consultation to evaluate symptoms of acute alcohol and nicotine withdrawal. The patient informed she has lifelong history of alcohol abuse at least for last 20 years. She was drinking vodka from pint to fifth per day on a daily basis. She had been before in detox, latest three weeks ago at [facility]. She arrived home, she got "bad news," so three days later, she started to drink again. She had an episode of what appears to be transient loss of consciousness with fall, but denies seizure activities. Denies any associated symptoms to suggest seizure activities. The patient now being admitted after having a single drink in the morning. She became tremulous, had episode of vomiting, and brought to this hospital. On arrival, her blood pressure 147/64 and temperature 97.5. Her [place] Coma Scale was 15. The patient indicates since she was admitted, she developed withdrawal symptoms. She feels shaking, severely depressed, some headache, nausea, cannot sleep nighttime, and initially had unsteady gait, now improved. PAST MEDICAL HISTORY: History of alcohol abuse, history of depression maintained on Effexor at 150 mg daily. In addition, she was on BuSpar, pantoprazole, trazodone at bedtime, magnesium oxide supplement, and ibuprofen as needed. ALLERGIES: None reported. SOCIAL HISTORY: The patient is . She lives at home with her elderly 89-year-old mother who she is taking care of. She is a smoker of one pack per day. She denies any other major medical problems. FAMILY HISTORY: Noncontributory. REVIEW OF SYMPTOMS: A 12-point review of symptom was obtained, this was negative except given in HPI including generalized tremors, insomnia, "not feeling well," nausea, headache, and mood depressed, but no chest pain, no palpitations, no respiratory problem. Denies abdominal pain or discomfort. No urinary or bowel incontinence. PHYSICAL EXAMINATION: GENERAL: A well-developed, somewhat cachectic-appearing female, not in acute distress, but appears quite depressed. VITAL SIGNS: Her vital signs now are stable, heart rate of 102, blood pressure 118/76, and afebrile. HEENT: Head normocephalic. No evidence of trauma. Eyes, ears, nose, and throat are clear. NECK: Supple. No meningeal signs. MUSCULOSKELETAL: Unremarkable. There are no deformities. Peripheral pulses 1+, symmetric. MENTAL STATUS: She is alert and oriented x3 with no evidence of aphasia or apraxia. Cognitive function normal. Emotionally labile, tense, and anxious. Mood depressed. CRANIAL NERVE II: Pupils both responding to light and accommodation. Extraocular movements intact. No nystagmus. CRANIAL NERVE V: Normal corneal responses. CRANIAL NERVE VII: No facial asymmetry. CRANIAL NERVE VIII: Normal hearing. CRANIAL NERVES IX THROUGH XII: With normal limits. MOTOR EXAMINATION: Normal muscle tone and strength in all extremities. There is slight resting and action tremor bilaterally. Deep tendon reflexes 1+ and symmetric with downgoing toes on both sides. SENSORY EXAMINATION: Normal to pinprick and light touch. GAIT: Slow, slightly wobbly. LABORATORY AND DIAGNOSTIC DATA: Laboratory work, this included CBC study with elevated MCV and MCH at 109/35.6. Urinalysis, 4+ ketones. Toxicology panel on admission included serum alcohol of 118. Chemistry panel on admission, carbon dioxide of 8, potassium 3.3, glucose 51, calcium 8.3, elevated AST of 99, alkaline phosphatase 166, and albumin level at 3.2. IMPRESSION: 1. Chronic alcohol abuse, withdrawal. 2. Nicotine abuse, withdrawal. 3. Depression. 4. Malnutrition. RECOMMENDATION: The patient restarted on antidepressants, further management of depression deferred to psychiatry. The patient will continue with IV fluid supplements with magnesium oxide, folate, and thiamine. Sedation, she will need p.r.n. trazodone use, lorazepam, and Librium. Nicotine patch will be placed. The patient to remain under close supervision and cardiac monitoring. Thank you for allowing me to see this interesting patient in neurological consultation. Brennon Brumfield M.D. DR: MAN JOB#: [id number] CC:
[2017-09-30] MEDS ORDERED: FOLIC ACID1 MG ORAL (11:30)
== END 2017-09-18 16:00 | disposition left against medical advice (07) | DRG 894 ==
LOC: EMR 14:00 → EDBEDREQ 16:01 → EDBEDREQSVC 16:01 → EDBEDREQ 16:23 → 2E 16:33 → 4E 09-16 17:30
DX: F10.239 Alcohol dependence with withdrawal, unspecified (principal); K85.20 Alcohol induced acute pancreatitis without necrosis or infection; F32.9 Major depressive disorder, single episode, unspecified; F17.210 Nicotine dependence, cigarettes, uncomplicated; R45.84 Anhedonia; Z91.19 Patient's noncompliance with other medical treatment and regimen; Z53.21 Procedure and treatment not carried out due to patient leaving prior to being seen by health care provider; Y90.5 Blood alcohol level of 100-119 mg/100 ml
CPT/HCPCS: 36415; 36600; 80053; 80307; 80329; 81003; 82150; 82803; 83690; 83735; 84100; 85007; 85025; 87081; 93005; 99282; 99285; J2405; J8499

== ENCOUNTER 2017-09-18 19:40 | Emergency (ER) | payer MEDICARE, MEDICAID ==
[~2017-09-18] VITALS: Ht 160 cm; Wt 49.9 kg
[2017-09-18 19:50] VITALS: BP 130/69
[2017-09-18 20:25] VITALS: BP 130/69
--- NOTE | 2017-09-18 20:56 | Emergency Room Report ---
History of Present Illness General Chief Complaint: General Complaint Source: Patient Present Illness HPI 67-year-old female comes in with request for detox Patient left AMA from [place] floor earlier today Had been admitted for alcohol withdrawal After leaving the hospital patient drank alcohol, states that she is "a little drunk" now. Requesting readmission for detox Denies chest pain, shortness of breath, abdominal pain or other symptoms. Allergies: Coded Allergies: No Known Allergies (Unverified , 09/13/17) Patient History Past Medical History: none Past Surgical History: none Pertinent Family History: none Social History: Reports: alcohol use Last Menstrual Period: na Now: No Immunizations: UTD Reviewed Nursing Documentation: PMH: Agreed, PSxH: Agreed Review of Systems All Other Systems: negative except mentioned in HPI Physical Exam Vital Signs Date Time Temp Pulse Resp B/P (MAP) Pulse Ox O2 Delivery O2 Flow Rate FiO2 09/18/17 19:45 98.2 118 20 138/68 98 Room Air Sp02 EP Interpretation: reviewed, normal General Appearance: normal inspection, well appearing, no apparent distress, alert, GCS 15, non-toxic Head: normocephalic, atraumatic Eyes: bilateral eye PERRL, bilateral eye EOMI ENT: normal ENT inspection, hearing grossly normal, normal pharynx, no angioedema, normal voice, TMs + canals normal, uvula midline, moist mucus membranes Neck: normal inspection, full range of motion, supple, thyroid normal, no meningismus, no bony tend Respiratory: normal inspection, lungs clear, normal breath sounds, no rhonchi, no respiratory distress, no retraction, no accessory muscle use, no wheezing, speaking full sentences Cardiovascular #1: regular rate, rhythm, no edema, no JVD, normal capillary refill Gastrointestinal: normal inspection, normal bowel sounds, non tender, soft, no mass, no peritonitis, non-distended, no guarding, no hernia, no pulsatile mass Genitourinary: no CVA tenderness Musculoskeletal: normal inspection, back normal, normal range of motion, no calf tenderness, pelvis stable, Nilo's Sign negative Neurologic: normal inspection, alert, oriented x3, responsive, 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-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 nml as tested, motor strength/tone normal, cerebellar normal, normal gait, speech normal Psychiatric: normal inspection, judgement/insight normal, mood/affect normal, no suicidal/homicidal ideation, no delusions Skin: normal inspection, normal color, no rash Lymphatic: normal inspection, no adenopathy Medical Decision Making Diagnostic Impression: Primary Impression: Alcohol dependence Qualified Codes: F10.20 - Alcohol dependence, uncomplicated ER Course patient with mild alcohol intox Otherwise alert and oriented, ambulating with steady gait Patient is also homeless, states she doesnt have anywhere to go I gave info on detox and homeless shelters ER course: Patient has remained stable during ED stay. Disposition: Patient is to be discharged to home. Patient is instructed to follow up with their primary care doctor within 5 days. Strict return precautions discussed with patient such as fever, chills, worsening/severe pain, nausea, vomiting, which may indicate severe illness. Patient verbalizes understanding and agrees with plan. Please note that this Emergency Department Report was dictated using 2CODE Onlineinformation systems technician technology software, occasionally this can lead to erroneous entry secondary to interpretation by the dictation equipment Last Vital Signs Date Time Temp Pulse Resp B/P (MAP) Pulse Ox O2 Delivery O2 Flow Rate FiO2 09/18/17 20:25 98.1 87 19 130/69 99 Room Air Status: improved Disposition: HOME, SELF-CARE Condition: Improved Patient Instructions: Alcohol Intoxication, [id number] Additional Instructions: Please go to one of the places on list for alcohol detox/abuse OLIVIA DEL REAL M.D. Sep 18, 2017 20:56
--- NOTE | 2017-09-23 09:25 | Initial Psychiatric Evaluation ---
Initial Psychiatric Eval Admission Justification: recent hospitalization History of Present Illness: Recently hospitalized for pancreatitis, has been a drinker for 20 years but with times of sobriety. Has been much worse the past six months. Also dxed with depression at 17. Multiple hospitalizations, OP Rx, counseling, medcication for derpession,. Past Psychiatric History: See above. Ill since 17 or so. Medical History: Recent pancreatitis, this the first episode. Substance Abuse History: Has had gambling problems and bulimia Social/Family/Abuse/Legal Hx: Born and raised in [facility] by both parents. Father had his own business, and they got along. Mom was homemaker, and they had a good relationship. Two brothers. FH: MGF was said to have "lost it". Raised Episcopal , not observant. Went to public schools, and went to multiple colleges, got degrees inclujding a law degree, and recent degree in counseling. 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 Had two children, one at 29 (happened a month ago). 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 Pt is 67 year old white Ep[employer] woman, twice, unmarried for 15 years. Appearance: well groomed Behavior Mannerisms: good eye contact Affect: blunted Mood: depressed Speech: clear Thought Process: no abnormalities Thought Content: no abnormalities Suicidal Ideation: not present Additional Comments: Presently takes effexor 150 daily. Had has had prozac, zoloft, wellbutrin (1) Alcohol dependence [place] I: Alcohol dependence; MDD disorder [place]: II none [place]: III recent pancreatitis [place]: IV moderate [place]: V 31-40 General Health Statement: Has recent pancreatitis. Assets: bright Liabilities: recurrent illness, recent loss of son ELOS: 25 weeks Discharge Criteria: out of depression, sober, functioning Initial Treatment Plan: biopsychosocial Admission Date: Sep 23, 2017 YINKA HILL Sep 23, 2017 09:25
[2017-09-30] MEDS ORDERED: FOLIC ACID1 MG ORAL (11:30)
== END 2017-09-18 20:25 | disposition home or self-care (01) ==
LOC: EMR 20:10
DX: F10.20 Alcohol dependence, uncomplicated (principal)
CPT/HCPCS: 99283

== ENCOUNTER 2018-05-22 13:30 | Outpatient (CLI) | payer MEDICARE, MEDICAID ==
[~2018-05-22] VITALS: Ht 160 cm; Wt 49.9 kg
[~2018-05-22 13:30] MED LIST changes: +BENTYL10 MG/1 ML PO; +CARAFATE1 G1 ORAL; +CHANTIX1 MG PO; +FOLIC ACID1 MG ORAL; +VITAMIN B-1100 MG ORAL
[2018-05-22 14:05] VITALS: BP 134/82
--- NOTE | 2018-05-23 15:04 | GI Initial Consult Note ---
History of Present Illness General Date patient seen: May 22, 2018 Time patient seen: 15:01 Referring physician: SANDRO Reason for Consultation: ABDOMINAL PAIN Present Illness HPI 68 year old female patient who presents today c/o of abdominal pain vs discomfort and GERD. Her last colonoscopy was greater than 5 years ago. Per patient, had quit ETOH for approximately 1 year now. Current tobacco use. Denies any unintentional weight loss or changes in dietary habits. No signs of abuse or neglect. Patient is not fall risk. Home Meds Reported Medications Thiamine Hcl* (VITAMIN B-1*) 100 Mg Tablet, 100 MG ORAL DAILY, #30 TAB 0 Refills 12/18/17 Folic Acid* (FOLIC ACID*) 1 Mg Tablet, 1 MG ORAL DAILY, TAB 09/30/17 Trazodone* (TRAZODONE*) 150 Mg Tablet, 100 MG ORAL BEDTIME, TAB 09/13/17 Magnesium Oxide (MAGNESIUM) 400 Mg Capsule, 400 MG PO DAILY, CAP 09/13/17 Pantoprazole* (PANTOPRAZOLE*) 40 Mg Tablet.dr, 40 MG ORAL DAILY, TAB 09/13/17 Venlafaxine Hcl* (VENLAFAXINE HCL ER*) 150 Mg Cap.er.24h, 300 MG ORAL DAILY, CAP 09/13/17 Buspirone Hcl* (BUSPIRONE HCL*) 10 Mg Tablet, 10 MG ORAL bid, #60 TAB 0 Refills 09/13/17 Multivitamins* (MULTIVITAMINS*) 1 Each Tablet, 1 TAB ORAL DAILY, TAB 0 Refills 09/13/17 Discontinued Reported Medications Dicyclomine Hcl (BENTYL) 10 Mg/1 Ml Ampul, 20 MG PO qid, AMP 12/18/17 Sucralfate* (CARAFATE*) 1 Gm Tablet, 1 GM ORAL tid before meals, TAB 12/18/17 Varenicline Tartrate (CHANTIX) 1 Mg Tablet, 1 MG PO bid, TAB 12/18/17 Ibuprofen* (MOTRIN*) 600 Mg Tablet, 800 MG ORAL Q8HR, #30 TAB 0 Refills 09/13/17 Med list reviewed/reconciled: Yes Allergies: Coded Allergies: No Known Allergies (Unverified , 09/13/17) Patient History History Provided By: Patient, Medical Record PMH Narrative ETOH abuse history of pancreatitis 2016 GERD Depression Anemia Past Surgical History: Family History Narrative Daughter had pre-cancerous / colon cancer s/p surgery. Social History: Reports: smoking - 1 pack daily, alcohol use, other - caffiene use Review of Systems All Other Systems: negative except mentioned in HPI Physical Exam Vital Signs Date Time Temp Pulse Resp B/P (MAP) Pulse Ox O2 Delivery O2 Flow Rate FiO2 05/22/18 14:05 98.2 97 18 134/82 96 98.2 Sp02 EP Interpretation: reviewed, normal General Appearance: well appearing, no apparent distress, alert Head: normocephalic EENT: PERRL/EOMI, normal ENT inspection Neck: supple Respiratory: normal breath sounds, no respiratory distress Cardiovascular: normal rate Gastrointestinal: normal inspection, non tender, soft, normal bowel sounds, non -distended Rectal: deferred Genitourinary: no CVA tenderness Musculoskeletal: normal inspection, back normal Neurologic: normal inspection, alert, oriented x3, responsive Psychiatric: normal inspection, judgement/insight normal, memory normal Skin: normal inspection, normal color, no rash, warm/dry, palpation normal, well hydrated Lymphatic: normal inspection, no adenopathy GI: Plan Problems: (1) Abdominal pain (2) GERD (gastroesophageal reflux disease) (3) Colonoscopy planned (4) Major depression (5) Alcoholic pancreatitis Plan EGD/colonoscopy scheduled 05/28/18. - CLD & (Nulytely/Suprep/Movi-Prep) prep instructions given and acknowledged by patient. - NPO @ [place] day prior procedure explained. Seen with Dr. Mcknight. Thank you for this patient referral. The patient was seen and examined at bedside and all new and available data was reviewed in the patients chart. I agree with the above findings, impression and plan. (Patient seen earlier today. Signature stamp does not reflect patient encounter time.). - MD Kerri De La RosaPhoenix Children'S HospitalArnol SHEET FOLDER May 23, 2018 15:04
== END 2018-05-22 14:00 | disposition home or self-care (01) ==
LOC: PAN 13:30
DX: K21.9 Gastro-esophageal reflux disease without esophagitis (principal); F17.200 Nicotine dependence, unspecified, uncomplicated; F32.9 Major depressive disorder, single episode, unspecified; K85.20 Alcohol induced acute pancreatitis without necrosis or infection; D64.9 Anemia, unspecified
CPT/HCPCS: 99201

== ENCOUNTER 2018-05-28 06:55 | Day surgery (SDC) | payer MEDICARE, MEDICAID ==
[~2018-05-28] VITALS: Ht 160 cm; Wt 49.9 kg
[2018-05-28] VITALS (14 sets, daily range): BP systolic 116–140; BP diastolic 58–93
--- NOTE | 2018-05-28 06:32 | Anethesia Preoperative Eval ---
Anesthesia Pre-op PMH/ROS General Date of Evaluation: May 28, 2018 Time of Evaluation: 06:30 Anesthesiologist: steve ASA Score: ASA 3 Mallampati Score Class I : Soft palate, uvula, fauces, pillars visible Class II: Soft palate, uvula, fauces visible Class III: Soft palate, base of uvula visible Class IV: Only hard plate visible Mallampati Classification: Class II Surgeon: jens Diagnosis: gerd, colon screening Surgical Procedure: egd/colonoscopy Anesthesia History: none Social History: current smoker, alcohol use Family History: no anesthesia problems Allergies: Coded Allergies: No Known Allergies (Unverified , 05/28/18) Medications: see eMAR Past Medical History Gastrointestinal/Genitourinary: Reports: GERD, other - pancreatitis Neurologic/Psychiatric: Reports: depression/anxiety Hematology/Immune: Reports: anemia Anesthesia Pre-op Phys. Exam Physician Exam Last Vital Signs Date Time Temp Pulse Resp B/P (MAP) Pulse Ox O2 Delivery O2 Flow Rate FiO2 05/28/18 07:35 98.2 79 16 128/76 (93) 100 98.2 05/28/18 07:30 Room Air Constitutional: NAD Neurologic: CN 2-12 intact Cardiovascular: RRR Respiratory: CTA Gastrointestinal: S/NT/ND Airway Exam Mallampati Score: Class II MO: full Neck: supple TMD: 2fb ROM: full Teeth: missing Anesthesia Pre-op A/P Labs Labs Test 05/28/18 07:35 White Blood Count 5.5 K/UL (4.8-10.8) Red Blood Count 4.53 M/UL (4.20-5.40) Hemoglobin 13.9 G/DL (12.0-16.0) Hematocrit 42.8 % (37.0-47.0) Mean Corpuscular Volume 94 FL (80-99) Mean Corpuscular Hemoglobin 30.7 PG (27.0-31.0) Mean Corpuscular Hemoglobin Concent 32.5 G/DL (32.0-36.0) Red Cell Distribution Width 13.3 % (11.6-14.8) Platelet Count 313 K/UL (150-450) Mean Platelet Volume 5.8 FL (6.5-10.1) Neutrophils (%) (Auto) 68.9 % (45.0-75.0) Lymphocytes (%) (Auto) 23.6 % (20.0-45.0) Monocytes (%) (Auto) 4.4 % (1.0-10.0) Eosinophils (%) (Auto) 1.7 % (0.0-3.0) Basophils (%) (Auto) 1.4 % (0.0-2.0) Sodium Level 141 MMOL/L (136-145) Potassium Level 4.3 MMOL/L (3.5-5.1) Chloride Level 105 MMOL/L (98-107) Carbon Dioxide Level 27 MMOL/L (21-32) Anion Gap 9 mmol/L (5-15) Blood Urea Nitrogen 7 mg/dL (7-18) Creatinine 0.9 MG/DL (0.55-1.30) Estimat Glomerular Filtration Rate > 60 mL/min (>60) Glucose Level 92 MG/DL (74-106) Calcium Level 9.6 MG/DL (8.5-10.1) Total Bilirubin 0.3 MG/DL (0.2-1.0) Aspartate Amino Transf (AST/SGOT) 23 U/L (15-37) Alanine Aminotransferase (ALT/SGPT) 26 U/L (12-78) Alkaline Phosphatase 115 U/L (46-116) Total Protein 7.7 G/DL (6.4-8.2) Albumin 3.8 G/DL (3.4-5.0) Globulin 3.9 g/dL Albumin/Globulin Ratio 1.0 (1.0-2.7) Amylase Level 45 U/L (25-115) Lipase 135 U/L (73-393) Risk Assessment & Plan Assessment: asa3 Plan: mac Status Change Before Surgery: No Pre-Antibiotics Drug: Oneida Del Real MD May 28, 2018 06:31
[~2018-05-28 06:55] MED LIST changes: +Atropine Inj 1mg/10ml Syr IV PRN; +DiphenhydrAMINE 50mg/ml Inj IVP PRN; +Midazolam 2mg/2ml Inj IVP PRN; +fentaNYL 100 mcg/2 mL IV PRN
[2018-05-28 08:04] LABS: BASOPHILS % (AUTO) 1.4 % (0.0-2.0); EOSINOPHILS % (AUTO) 1.7 % (0.0-3.0); HEMATOCRIT 42.8 % (37.0-47.0); HEMOGLOBIN 13.9 G/DL (12.0-16.0); LYMPHOCYTES % (AUTO) 23.6 % (20.0-45.0); MEAN CORPUSCULAR VOLUME 94 FL (80-99); MONOCYTES % (AUTO) 4.4 % (1.0-10.0); NEUTROPHILS % (AUTO) 68.9 % (45.0-75.0); PLATELET COUNT 313 K/UL (150-450); RED BLOOD COUNT 4.53 M/UL (4.20-5.40); RED CELL DISTRIBUTION WIDTH 13.3 % (11.6-14.8); WHITE BLOOD COUNT 5.5 K/UL (4.8-10.8)
[2018-05-28 08:28] LABS: ALANINE AMINOTRANSFERASE 26 U/L (12-78); ALBUMIN 3.8 G/DL (3.4-5.0); ALKALINE PHOSPHATASE 115 U/L (46-116); AMYLASE 45 U/L (25-115); ANION GAP 9 mmol/L (5-15); ASPARTATE AMINO TRANSFERASE 23 U/L (15-37); BILIRUBIN,TOTAL 0.3 MG/DL (0.2-1.0); BLOOD UREA NITROGEN 7 mg/dL (7-18); CALCIUM 9.6 MG/DL (8.5-10.1); CARBON DIOXIDE 27 MMOL/L (21-32); CHLORIDE 105 MMOL/L (98-107); CREATININE 0.9 MG/DL (0.55-1.30); POTASSIUM 4.3 MMOL/L (3.5-5.1); SODIUM 141 MMOL/L (136-145)
[2018-05-28] MEDS ORDERED: Lidocaine 1% MPF 10mg/ml 5ml ONE (09:00)
[2018-05-28] MEDS ORDERED: Propofol 200mg/20ml IV ONE (09:00)
--- NOTE | 2018-05-28 09:30 | Pre-Procedure Note/Attestation ---
Pre-Procedure Note/Attestation Complete Prior to Procedure Planned Procedure: not applicable Procedure Narrative: esophagogastroduodenoscopy and colonoscopy Indications for Procedure Pre-Operative Diagnosis: gerd, screening colon Attestation I attest that I discussed the nature of the procedure; its benefits; risks and complications; and alternatives (and the risks and benefits of such alternatives ), prior to the procedure, with the patient (or the patient's legal registered representative). I attest that, if there was a reasonable possibility of needing a blood transfusion, the patient (or the patient's legal registered representative) was given the [facility] standardized written summary, pursuant to the [place] Blood Safety Act ([place] Health and Safety Code # 1645, as amended). I attest that I re-evaluated the patient just prior to the surgery and that there has been no change in the patient's H&P, except as documented below: Pieter Mcknight MD May 28, 2018 09:30
--- NOTE | 2018-05-28 09:31 | Short Stay Surgery H&P ---
History of Present Illness History of Present Illness Chief Complaint see recent office note HPI Shital Garcia is a 68 year old female who was admitted on for Gerd, Colon Screening Patient History Allergies: Coded Allergies: No Known Allergies (Unverified , 05/28/18) Medication History Scheduled Buspirone Hcl* (Buspirone Hcl*), 10 MG ORAL bid, (Reported) Folic Acid* (Folic Acid*), 1 MG ORAL DAILY, (Reported) Multivitamins* (Multivitamins*), 1 TAB ORAL DAILY, (Reported) Pantoprazole* (Pantoprazole*), 40 MG ORAL DAILY, (Reported) Thiamine Hcl* (Vitamin B-1*), 100 MG ORAL DAILY, (Reported) Trazodone* (Trazodone*), 100 MG ORAL BEDTIME, (Reported) Venlafaxine Hcl* (Venlafaxine Hcl Er*), 300 MG ORAL DAILY, (Reported) Discontinued Medications Dicyclomine Hcl (Bentyl), 20 MG PO qid, (Reported) Discontinued Reason: Pt stopped taking med Ibuprofen* (Motrin*), 800 MG ORAL Q8HR, (Reported) Discontinued Reason: Pt stopped taking med Magnesium Oxide (Magnesium), 400 MG PO DAILY, (Reported) Discontinued Reason: Pt stopped taking med Sucralfate* (Carafate*), 1 GM ORAL tid before meals, (Reported) Discontinued Reason: Pt stopped taking med Varenicline Tartrate (Chantix), 1 MG PO bid, (Reported) Discontinued Reason: Pt stopped taking med Physical Exam Vital Signs Last Vital Signs Date Time Temp Pulse Resp B/P (MAP) Pulse Ox O2 Delivery O2 Flow Rate FiO2 05/28/18 07:35 98.2 79 16 128/76 (93) 100 98.2 05/28/18 07:30 Room Air Labs Laboratory Tests Test 05/28/18 07:35 White Blood Count 5.5 K/UL (4.8-10.8) Red Blood Count 4.53 M/UL (4.20-5.40) Hemoglobin 13.9 G/DL (12.0-16.0) Hematocrit 42.8 % (37.0-47.0) Mean Corpuscular Volume 94 FL (80-99) Mean Corpuscular Hemoglobin 30.7 PG (27.0-31.0) Mean Corpuscular Hemoglobin Concent 32.5 G/DL (32.0-36.0) Red Cell Distribution Width 13.3 % (11.6-14.8) Platelet Count 313 K/UL (150-450) Mean Platelet Volume 5.8 FL (6.5-10.1) L Neutrophils (%) (Auto) 68.9 % (45.0-75.0) Lymphocytes (%) (Auto) 23.6 % (20.0-45.0) Monocytes (%) (Auto) 4.4 % (1.0-10.0) Eosinophils (%) (Auto) 1.7 % (0.0-3.0) Basophils (%) (Auto) 1.4 % (0.0-2.0) Sodium Level 141 MMOL/L (136-145) Potassium Level 4.3 MMOL/L (3.5-5.1) Chloride Level 105 MMOL/L (98-107) Carbon Dioxide Level 27 MMOL/L (21-32) Anion Gap 9 mmol/L (5-15) Blood Urea Nitrogen 7 mg/dL (7-18) Creatinine 0.9 MG/DL (0.55-1.30) Estimat Glomerular Filtration Rate > 60 mL/min (>60) Glucose Level 92 MG/DL (74-106) Calcium Level 9.6 MG/DL (8.5-10.1) Total Bilirubin 0.3 MG/DL (0.2-1.0) Aspartate Amino Transf (AST/SGOT) 23 U/L (15-37) Alanine Aminotransferase (ALT/SGPT) 26 U/L (12-78) Alkaline Phosphatase 115 U/L (46-116) Total Protein 7.7 G/DL (6.4-8.2) Albumin 3.8 G/DL (3.4-5.0) Globulin 3.9 g/dL Albumin/Globulin Ratio 1.0 (1.0-2.7) Amylase Level 45 U/L (25-115) Lipase 135 U/L (73-393) Plan Attestation Are the patient's medical conditions optimized for surgery? Pieter Mcknight MD May 28, 2018 09:31
--- NOTE | 2018-05-28 10:04 | Endoscopy Procedure Note ---
Endoscopy Procedure Note General Indication for Procedure: gerd, screening colon Procedures Performed: EGD, colonoscopy Operative Findings/Diagnosis: esophagitis, colon polyp Specimen: yes Pt Tolerated Procedure Well: Yes Estimated Blood Loss: none Anesthesia Anesthesiologist: tessa Anesthesia: MAC Inserted Devices Implant(s) used?: No Quality Quality of Bowel Preparation: Good Did scope reach the cecum?: Yes Was there any complications?: No GI Core Measures 50 yrs or older w/o bx or poly: No 10yrs. F/U not recommended: Yes If not recommended, why?: Above average risk 10 yrs. F/U needed: Yes 18 years or older w/prev. colo: No Pieter Mcknight MD May 28, 2018 10:04
--- NOTE | 2018-05-28 14:34 | Immediate Post-Op Evaluation ---
Immediate Post-Op Evalulation Immediate Post-Op Evalulation Procedure: egd/colonoscopy w/bx Date of Evaluation: May 28, 2018 Time of Evaluation: 10:23 IV Fluids: 550ml 0.9ns Blood Products: none Estimated Blood Loss: negligible Blood Pressure Systolic: 138 Blood Pressure Diastolic: 73 Pulse Rate: 96 Respiratory Rate: 18 O2 Sat by Pulse Oximetry: 99 Temperature (Fahrenheit): 98.3 Pain Score (1-10): 0 Nausea: No Vomiting: No Complications none Patient Status: awake, reacts, patent Hydration Status: adequate Drug: Oneida Del Real MD May 28, 2018 14:33
--- NOTE | 2018-05-28 14:35 | 48 Hour Post Anesthesia Eval ---
Post Anesthesia Evaluation Procedure: egd/colonoscopy w/bx Date of Evaluation: May 28, 2018 Time of Evaluation: 10:25 Blood Pressure Systolic: 127 0: 70 Pulse Rate: 70 Respiratory Rate: 18 Temperature (Fahrenheit): 98.3 O2 Sat by Pulse Oximetry: 99 Airway: patent Nausea: No Vomiting: No Pain Intensity: 0 Hydration Status: adequate Cardiopulmonary Status: stable Mental Status/LOC: patient returned to baseline Post-Anesthesia Complications: none Follow-up care needed: N/A Oneida Davidson MD May 28, 2018 14:35
--- NOTE | 2018-05-29 09:30 | Procedure Note ---
DATE OF PROCEDURE: 05/28/2018 NOTE: "POOR AUDIO QUALITY" SURGEON: Pieter Mcknight M.D. ANESTHESIOLOGIST: Dr. Rain. REFERRING PHYSICIAN: Gaudencio Pittman M.D. PROCEDURE: Upper endoscopy with biopsy and colonoscopy with biopsy. ANESTHESIA: Per Dr. Rain. INSTRUMENT: Olympus adult flexible upper endoscope and colonoscope. INDICATION: GERD, screening colonoscopy evaluation. The procedure, risks, benefits, and possible consequences, including hemorrhage, aspiration, perforation and infection, and alternative treatments, were explained to the patient/legal guardian by Dr. Pieter Mcknight and the patient/legal guardian understood and accepted these risks. DESCRIPTION OF PROCEDURE: After informed consent was obtained and the patient was adequately sedated, Olympus upper endoscope was advanced from the mouth into second portion of the duodenum and retroflexion was performed in the stomach. The patient had evidence of distal esophagitis ? Gibson esophagus. Multiple biopsies from distal esophagus were obtained. The patient had evidence of a small hiatal hernia. In the stomach, there was diffuse gastritis. Random biopsy from antrum and body were obtained to rule out H. pylori infection. At this time, the upper endoscope was retrieved. The patient was turned over for colonoscopy. First, rectal exam was performed which was normal. Then the scope was advanced from the rectum into the cecum, then subsequently into the terminal ileum. Quality of prep was good. The patient had one diminutive polyp in the cecum, which was biopsied. The patient had multiple hyperplastic looking polyps in the rectosigmoid area, 2 of them were biopsied for diagnosis. Retroflexion of rectum was performed, which showed no obvious large internal hemorrhoids. SUMMARY OF FINDINGS: 1. Esophagitis. 2. Hiatal hernia. 3. Gastritis. 4. 3 colonic polyp removed, see above for details. RECOMMENDATIONS: 1. Follow up biopsy results and treat accordingly. 2. The patient to be on PPI daily given esophagitis. 3. repeat colonoscopy in 5 years I want to thank Dr. Gaudencio Pittman for this kind referral. Pieter Mcknight M.D. DR: Adilene JOB#: [id number] CC: Gaudencio Pittman M.D.; Fax#: [phone] [facility]ALTH[facility]anna
== END 2018-05-28 12:10 | disposition home or self-care (01) ==
LOC: GAS 06:55
DX: Z12.11 Encounter for screening for malignant neoplasm of colon (principal); D12.0 Benign neoplasm of cecum; K63.5 Polyp of colon; K21.0 Gastro-esophageal reflux disease with esophagitis; K22.70 Barrett's esophagus without dysplasia; K44.9 Diaphragmatic hernia without obstruction or gangrene; K29.50 Unspecified chronic gastritis without bleeding; F17.200 Nicotine dependence, unspecified, uncomplicated; F32.9 Major depressive disorder, single episode, unspecified; F41.9 Anxiety disorder, unspecified; D64.9 Anemia, unspecified; Z87.19 Personal history of other diseases of the digestive system
CPT/HCPCS: 36415; 43239; 45380; 80053; 82150; 83690; 85025; 93005; J2704; J3010; 94003; 94150

== ENCOUNTER 2018-06-23 13:02 | Outpatient (CLI) | payer MEDICARE, MEDICAID ==
--- NOTE | 2018-06-23 10:16 | IOP Physician Progress Note ---
IOP Physician Progress Note Problem: depression Description of Symptoms: the patient continues to struggle, says there is nothing bad. She has gone to the beach and had a good AA meeting there. She lives with her mother who is showing signs of dementia. Diagnosis [place] I: Alcoholism, depression, gambling and food issues [place]: II depressed [place]: III pancreatitis, recent colonoscopy showed benign polyps? [place]: IV sensitive to stressors [place]: V 31-40 Progress Since Last Eval: The patient continues sober, with only one beer in the past 6 months. Current Med Management: There are no plans to change. Home Meds: Reported Medications Thiamine Hcl* (VITAMIN B-1*) 100 Mg Tablet, 100 MG ORAL DAILY, #30 TAB 0 Refills 12/18/17 Folic Acid* (FOLIC ACID*) 1 Mg Tablet, 1 MG ORAL DAILY, TAB 09/30/17 Trazodone* (TRAZODONE*) 150 Mg Tablet, 100 MG ORAL BEDTIME, TAB 09/13/17 Pantoprazole* (PANTOPRAZOLE*) 40 Mg Tablet.dr, 40 MG ORAL DAILY, TAB 09/13/17 Venlafaxine Hcl* (VENLAFAXINE HCL ER*) 150 Mg Cap.er.24h, 300 MG ORAL DAILY, CAP 09/13/17 Buspirone Hcl* (BUSPIRONE HCL*) 10 Mg Tablet, 10 MG ORAL bid, #60 TAB 0 Refills 09/13/17 Multivitamins* (MULTIVITAMINS*) 1 Each Tablet, 1 TAB ORAL DAILY, TAB 0 Refills 09/13/17 Appearance: well groomed Affect: blunted Mood: depressed Thought Process: no abnormalities Suicidal/Homicidal Ideations: not present Risk Assessment: low risk at this time Cognition: no abnormalities Accomplishments before DC: The patient needs to understand her depression, and the stressors that lead to relapse to alcohol et. al. Comments This is being managed, and she sees her doctors re pancreatic functioning. Jesus Joseph MD Jun 23, 2018 10:16
[~2018-06-23 13:02] MED LIST changes: -Atropine Inj 1mg/10ml Syr IV PRN; -DiphenhydrAMINE 50mg/ml Inj IVP PRN; -Midazolam 2mg/2ml Inj IVP PRN; -fentaNYL 100 mcg/2 mL IV PRN
[2018-06-23 13:59] VITALS: BP 118/76
--- NOTE | 2018-06-23 15:43 | GI Progress Note ---
Assessment/Plan Problems: (1) Alcoholic pancreatitis ICD Codes: K85.20 - Alcohol induced acute pancreatitis without necrosis or infection SNOMED: 469302536 (2) Colonoscopy planned SNOMED: 128323105 (3) Abdominal pain ICD Codes: R10.9 - Unspecified abdominal pain SNOMED: 33976796 (4) GERD (gastroesophageal reflux disease) ICD Codes: K21.9 - Gastro-esophageal reflux disease without esophagitis SNOMED: 917517264 Status: stable Status Narrative Seen with Dr. Mcknight. Assessment/Plan SUMMARY OF FINDINGS: 1. Esophagitis. 2. Hiatal hernia. 3. Gastritis. 4. 3 colonic polyp removed, see above for details. RECOMMENDATIONS: 1. Follow up biopsy results and treat accordingly. >> distal esophagus compatible with Gibson's. 2. The patient to be on PPI daily given esophagitis. 3. repeat colonoscopy in 5 years RTC x 1 month The patient was seen and examined at bedside and all new and available data was reviewed in the patients chart. I agree with the above findings, impression and plan. (Patient seen earlier today. Signature stamp does not reflect patient encounter time.). - Pieter Mcknight MD Subjective Gastrointestinal/Abdominal: Reports: no symptoms Objective Last 24 Hour Vital Signs Date Time Temp Pulse Resp B/P (MAP) Pulse Ox O2 Delivery O2 Flow Rate FiO2 06/23/18 13:59 98.5 92 18 118/76 96 98.5 General Appearance: WD/WN, no apparent distress, alert Cardiovascular: normal rate Respiratory/Chest: normal breath sounds, no respiratory distress Abdominal Exam: normal bowel sounds, non tender, soft Extremities: normal range of motion, non-tender Lottie Manning CUSTOMER CARE AGENT Jun 23, 2018 15:43
== END 2018-06-23 13:32 | disposition home or self-care (01) ==
LOC: PAN 13:02
DX: K85.20 Alcohol induced acute pancreatitis without necrosis or infection (principal); R10.9 Unspecified abdominal pain; K21.9 Gastro-esophageal reflux disease without esophagitis; K20.9 Esophagitis, unspecified; K44.9 Diaphragmatic hernia without obstruction or gangrene; K29.70 Gastritis, unspecified, without bleeding; F32.9 Major depressive disorder, single episode, unspecified; F10.20 Alcohol dependence, uncomplicated; Z72.6 Gambling and betting; K85.90 Acute pancreatitis without necrosis or infection, unspecified
CPT/HCPCS: G0463

== ENCOUNTER 2018-12-19 13:03 | Emergency (ER) | payer MEDICARE, MEDICAID ==
[~2018-12-19] VITALS: Ht 160 cm; Wt 49.9 kg
[~2018-12-19 13:03] MED LIST changes: +IBUPROFEN800 M1 PO; +OMEPRAZOLE40 M1 ORAL
--- NOTE | 2018-12-19 13:20 | NUR ---
ED Nurse Note: ambulated into ER due to pain on right hand and pain under right sided breast s/p tripped and fall about 4 days ago. Bruise and swelling noted on the right hand. Denies any head injury. Denies taking any blood thinner. A/OX4. No trauma
--- NOTE | 2018-12-19 14:04 | Emergency Room Report ---
History of Present Illness General Chief Complaint: Multiple Trauma/Fall Source: Patient (Samra Delgado) Present Illness HPI 68-year-old female presents with right hand and rib pain status post mechanical fall 4 days ago. States that she did not hit her head and has no neck pain. States that her pain is limited to the fourth and fifth digit of the right hand associated with bruising and painful range of motion. She also has right anterior lower rib pain and denies have any bruising or shortness of breath. She is not taking medication for her symptoms. Patient denies any numbness, tingling, pressure, paralysis, cyanosis, loss of sensation, or loss of range of motion. (Samra Delgado) Allergies: Coded Allergies: No Known Allergies (Unverified , 05/28/18) Patient History Past Medical History: see triage record Reviewed Nursing Documentation: PMH: Agreed; PSxH: Agreed (Samra Delgado) Nursing Documentation-PMH Past Medical History: No History, Except For Hx Cardiac Problems: No - Rheumatoid Arthritis Hx Hypertension: No Hx Pacemaker: No Hx Asthma: No Hx COPD: No Hx Diabetes: No Hx Cancer: No Hx Gastrointestinal Problems: Yes Hx Dialysis: No History Of Psychiatric Problem: Yes - Depression Hx Neurological Problems: No Hx Cerebrovascular Accident: No Hx Seizures: No (Samra Delgado) Review of Systems All Other Systems: negative except mentioned in HPI (Samra Delgado) Physical Exam Vital Signs Date Time Temp Pulse Resp B/P (MAP) Pulse Ox O2 Delivery O2 Flow Rate FiO2 12/19/18 13:13 98.2 99 14 149/87 96 Room Air Sp02 EP Interpretation: reviewed, normal General Appearance: no apparent distress, alert, GCS 15, non-toxic Head: normocephalic, atraumatic Eyes: bilateral eye normal inspection, bilateral eye PERRL ENT: hearing grossly normal, normal pharynx, no angioedema, normal voice Neck: full range of motion, supple/symm/no masses Respiratory: chest non-tender, lungs clear, normal breath sounds, speaking full sentences, other - right 8th and 9th rib tenderness, no flail chest, palpation of chest normal Cardiovascular #1: regular rate, rhythm, no edema Musculoskeletal: back normal, gait/station normal, normal range of motion, tender - right 4th and 5th fingers assoc with echymosis Neurologic: alert, oriented x3, responsive, motor strength/tone normal, sensory intact, speech normal Psychiatric: judgement/insight normal, memory normal, mood/affect normal, no suicidal/homicidal ideation Skin: normal color, no rash, warm/dry, well hydrated (Samra Delgado) Medical Decision Making PA Attestation Dr. Ferris is my supervising physician with whom patient management has been discussed with. (Samra Delgado) Medicare Attestation The history of Shital Garcia has been reviewed and management options for her have been examined and discussed by Joe Ferris. I have personally examined and interviewed the patient. (Joe Ferris MD) Diagnostic Impression: Primary Impression: Finger fracture, right Qualified Codes: S62.646A - Nondisplaced fracture of proximal phalanx of right little finger, initial encounter for closed fracture Additional Impression: Wrist fracture, closed Qualified Codes: S62.101A - Fracture of unspecified carpal bone, right wrist, initial encounter for closed fracture ER Course 68-year-old female with right rib and hand pain status post fall on Saturday. On exam she has ecchymosis her right hand. X-ray of the chest reveals no fractures. X-ray of the right hand reveals a distal right radial fracture and a fracture transverse fracture of the right pinky finger. Patient was placed in a ulnar gutter and thumb spica splint and was advised to follow-up with orthopedics within the next 3 to 5 days. Patient will be sent home with prescription for Hiller for her pain. She has positive CMS before and after splint application. Patient denies any numbness, tingling, pressure, paralysis , cyanosis, bruising, loss of sensation, or loss of range of motion. (Samra Delgado) Other X-Ray Diagnostic Results Other X-Ray Diagnostic Results : X-Ray ordered: Right hand # of Views/Limited Vs Complete: Complete Indication: Pain EP Interpretation: No Impression: Other - Acute transverse fracture through the base of the fifth proximal phalanx. Ossific density projecting adjacent to the basal joint where there is degenerative change. This may represent sequela or remote injury, degenerative change or more acute/subacute avulsion type injury. Correlation for point tenderness in this region is recommended. (Samra Delgado) Last Vital Signs Date Time Temp Pulse Resp B/P (MAP) Pulse Ox O2 Delivery O2 Flow Rate FiO2 12/19/18 13:41 98 16 Room Air 12/19/18 13:13 98.2 149/87 96 Status: unchanged (Samra Delgado) Disposition: HOME, SELF-CARE Condition: Stable Scripts Hydrocodone Bit/Acetaminophen 5-325* (NORCO 5-325*) 1 Each Tablet 1 TAB ORAL Q8HR PRN for For Pain, #15 TAB 0 Refills Prov: Samra Delgado 12/19/18 Patient Instructions: Finger Fracture, Wrist Fracture Additional Instructions: Take medication as directed. Patient advised to follow up with primary care provider within next 3-5 days. Keep splint as directed. Advised patient to use RICE therapy and nsaids as prescribed. Patient is to go to the ER immediately if they experience any pain that is not responding to medication, excess swelling, pressure feeling, loss of color, cyanosis, paralysis, or numbness. Samra Delgado Dec 19, 2018 14:04 Joe Ferris MD Dec 20, 2018 14:58
--- NOTE | 2018-12-19 14:31 | Diagnostic Imaging Report ---
Indication: Pain status post injury Technique: 3 views of the right hand Comparison: None Findings: Bones appear slightly demineralized. There is an acute appearing transverse fracture through the base of the fifth proximal phalanx. There is overlying soft tissue swelling. Additionally there is a seemingly well-corticated ossific density noted adjacent to the basal joint with areas joint space narrowing and subchondral sclerosis as well as productive change. Some degenerative changes are noted affecting the distal phalangeal joint as well. No radiopaque foreign body is identified. Impression: * Acute transverse fracture through the base of the fifth proximal phalanx. * Ossific density projecting adjacent to the basal joint where there is degenerative change. This may represent sequela of remote injury, degenerative change or more acute/subacute avulsion type injury. Correlation for point tenderness in this region is recommended.
--- NOTE | 2018-12-19 14:58 | Diagnostic Imaging Report ---
Indication: Pain Technique: PA view of the chest. Lateral and oblique views of the right ribs. Comparison: None Findings: Heart size and mediastinal contours within normal limits. There is no focal airspace consolidation, pleural effusion or pneumothorax. There are degenerative changes in the spine. There are fractures of the left posterior seventh, eighth and ninth ribs. There may be some bridging callus suggesting that these may be subacute. No definite/displaced right-sided rib fracture identified. No radiopaque foreign body. There are atherosclerotic vascular calcifications. Impression: Age indeterminant but possibly subacute fractures of the left posterior seventh, eighth and ninth ribs. Correlation for point tenderness recommended. No definite/displaced right-sided rib fracture. No focal airspace consolidation, pleural effusion or pneumothorax.
[2018-12-19 15:25] VITALS: BP 149/87
[2018-12-19] MEDS ORDERED: NORCO 5-325 TA1 EACH ORAL (15:41)
--- NOTE | 2018-12-19 15:47 | NUR ---
ED Nurse Note: pt cleared to be d/c per ER provider, splint done by microelectronics technician, pt discharge and aftercare instruction provided w/ prescription, pt education done via discussion and handout, pt advised to follow up with pcp or return to ed if changes in condition, pt verbalized understanding and agrees with plan, vss, ambulatory w/ steady gait, left w/ all belongings, ID band removed.
[2018-12-19 15:49] VITALS: BP 138/76
== END 2018-12-19 15:50 | disposition home or self-care (01) ==
LOC: EMR 13:30
DX: S62.616A Displaced fracture of proximal phalanx of right little finger, initial encounter for closed fracture (principal); S62.101A Fracture of unspecified carpal bone, right wrist, initial encounter for closed fracture; W19.XXXA Unspecified fall, initial encounter
CPT/HCPCS: 99284

== ENCOUNTER 2019-07-20 13:25 | Outpatient (CLI) | payer MEDICARE, MEDICAID ==
[~2019-07-20 13:25] MED LIST changes: +NORCO 5-325 TA1 EACH ORAL
--- NOTE | 2019-07-20 14:22 | General Progress Note ---
Assessment/Plan Assessment/Plan: (1) Alcoholic pancreatitis ICD Codes: K85.20 - Alcohol induced acute pancreatitis without necrosis or infection SNOMED: 974941569 (2) Colonoscopy planned SNOMED: 860101240 (3) Abdominal pain ICD Codes: R10.9 - Unspecified abdominal pain SNOMED: 02221516 (4) GERD (gastroesophageal reflux disease) ICD Codes: K21.9 - Gastro-esophageal reflux disease without esophagitis SNOMED: 006847960 Status: stable Status Narrative Seen with Dr. Mcknight. Assessment/Plan SUMMARY OF FINDINGS: 1. Esophagitis. 2. Hiatal hernia. 3. Gastritis. 4. 3 colonic polyp removed, see above for details. RECOMMENDATIONS: 1. Follow up biopsy results and treat accordingly. >> distal esophagus compatible with Gibson's.>>> plan EGD 2. The patient to be on PPI daily given esophagitis. 3. repeat colonoscopy in 3 years >> 2020 Subjective ROS Limited/Unobtainable: Yes Allergies: Coded Allergies: No Known Allergies (Unverified , 05/28/18) Objective General Appearance: alert EENT: normal ENT inspection Neck: supple Cardiovascular: normal rate Respiratory/Chest: decreased breath sounds Abdomen: normal bowel sounds, non tender, soft Extremities: non-tender Pieter Mcknight MD Jul 20, 2019 14:22
[2019-07-20 15:13] VITALS: BP 146/78
--- NOTE | 2019-07-27 13:22 | IOP Daily Group Progress Note ---
IOP Daily Group Progress Note Treatment Plan/Target Problem: Date: Jul 27, 2019 Group Reflections - Saturday: group 1 (9:40am-10:25am) Therapy Goal(s) of Group: anxiety reduction, assertiveness skills, communication skills , coping tools for symptoms, coping with change, counteracting negative thinking , decreasing isolation, establishing appropriate boundaries Observations: active listening skills, engaged, low energy, open, participated , participated spontaneously, participating actively, positive mood, self disclosing Staff Intervention: assessed for safety/suicidality, assessed pt's current mood , assisted identifying coping tools, assisted with identifying symptoms, encouraged patient participation, facilitated discussion Staff Intervention: It Security Administrator coordinated the patient checking in process, encouraging the pt to discuss current stressors and positives aspects of their journeys. Therapist encouraged patient to identify and verbalize their current mood and feelings that might influence it when performing activities of daily living and interacting with others. Therapist role modeled active listening skills for patient, and invited them to provide feedback to each other to promote empathy development. Therapist validate patient feelings and provided unconditional support while fostering patient participation. Response/Progress Noted: Patient participated spontaneously in the group discussion patient was very talkative and attentive. Patient did not need to be prompted to participate during the group session and to share current stressors and positive events. Patient was engaged during group activity. Patient benefited from participating in this group session by identifying and verbalizing present mood and its influence in feelings and actions. JENIFER BUSH Jul 27, 2019 13:22
== END 2019-07-20 15:25 | disposition home or self-care (01) ==
LOC: PAN 13:25
DX: K85.20 Alcohol induced acute pancreatitis without necrosis or infection (principal); R10.9 Unspecified abdominal pain; K21.9 Gastro-esophageal reflux disease without esophagitis; Z86.010 Personal history of colon polyps
CPT/HCPCS: 90834; 90853; G0463; 99212

== ENCOUNTER 2019-08-03 07:51 | Day surgery (SDC) | payer MEDICARE, MEDICAID ==
[~2019-08-03] VITALS: Ht 160 cm; Wt 49.9 kg
[2019-08-03] VITALS (7 sets, daily range): BP systolic 124–151; BP diastolic 74–98
--- NOTE | 2019-08-03 07:39 | Anethesia Preoperative Eval ---
Anesthesia Pre-op PMH/ROS General Date of Evaluation: Aug 03, 2019 Time of Evaluation: 07:39 Anesthesiologist: steve ASA Score: ASA 3 Mallampati Score Class I : Soft palate, uvula, fauces, pillars visible Class II: Soft palate, uvula, fauces visible Class III: Soft palate, base of uvula visible Class IV: Only hard plate visible Mallampati Classification: Class II Surgeon: jens Diagnosis: gerd, anemia Surgical Procedure: egd Anesthesia History: none Social History: current smoker, alcohol use Family History: no anesthesia problems Allergies: Coded Allergies: No Known Allergies (Unverified , 08/03/19) Medications: see eMAR Patient NPO?: Yes Past Medical History Gastrointestinal/Genitourinary: Reports: GERD, other - pancreatitis Neurologic/Psychiatric: Reports: depression/anxiety Musculoskeletal/Integumentary: Reports: OA, RA Anesthesia Pre-op Phys. Exam Physician Exam Last Vital Signs Date Time Temp Pulse Resp B/P (MAP) Pulse Ox O2 Delivery O2 Flow Rate FiO2 08/03/19 08:22 98.0 81 18 133/74 98 Room Air Constitutional: NAD Neurologic: CN 2-12 intact Cardiovascular: RRR Respiratory: CTA Gastrointestinal: S/NT/ND Airway Exam Mallampati Score: Class II MO: limited Neck: flexible TMD: 2fb ROM: limited Anesthesia Pre-op A/P Studies Pre-op Studies: EKG - nsr, incomplete rbbb, lafb Risk Assessment & Plan Assessment: asa3 Plan: mac Status Change Before Surgery: No Pre-Antibiotics Drug: Oneida Del Real MD Aug 03, 2019 07:39
[~2019-08-03 07:51] MED LIST changes: +Atropine Inj 1mg/10ml Syr IV PRN; +DiphenhydrAMINE 50mg/ml Inj IVP PRN; +LR 1000ml 1,000 ML IVLG SCH; +Midazolam 2mg/2ml Inj IVP PRN; +fentaNYL 100 mcg/2 mL IV PRN
[2019-08-03] MEDS ORDERED: Lidocaine 1% MPF 10mg/ml 5ml ONE (09:00)
[2019-08-03] MEDS ORDERED: LR 1000ml ONE (09:00)
[2019-08-03] MEDS ORDERED: Propofol 200mg/20ml IV ONE (09:00)
--- NOTE | 2019-08-03 09:28 | Pre-Procedure Note/Attestation ---
Pre-Procedure Note/Attestation Complete Prior to Procedure Planned Procedure: not applicable Procedure Narrative: egd Indications for Procedure Pre-Operative Diagnosis: barretts Attestation I attest that I discussed the nature of the procedure; its benefits; risks and complications; and alternatives (and the risks and benefits of such alternatives ), prior to the procedure, with the patient (or the patient's legal product sales representative). I attest that, if there was a reasonable possibility of needing a blood transfusion, the patient (or the patient's legal product sales representative) was given the [facility] standardized written summary, pursuant to the Jose Sahra Blood Safety Act ([place] Health and Safety Code # 1645, as amended). I attest that I re-evaluated the patient just prior to the surgery and that there has been no change in the patient's H&P, except as documented below: Pieter Mcknight MD Aug 03, 2019 09:28
--- NOTE | 2019-08-03 09:29 | Short Stay Surgery H&P ---
History of Present Illness History of Present Illness Chief Complaint barretts HPI Shital Garcia is a 69 year old female who was admitted on for GERD Patient History Allergies: Coded Allergies: No Known Allergies (Unverified , 08/03/19) PAST MEDICAL HISTORY: (1) Depression (2) Alcohol dependence (3) Major depression (4) GERD (gastroesophageal reflux disease) (5) Abdominal pain (6) Alcoholic pancreatitis Medication History Scheduled Multivitamins* (Multivitamins*), 1 TAB ORAL DAILY, (Reported) Omeprazole (Omeprazole), 40 MG ORAL DAILY, (Reported) Thiamine Hcl* (Vitamin B-1*), 100 MG ORAL DAILY, (Reported) Venlafaxine Hcl* (Venlafaxine Hcl Er*), 300 MG ORAL DAILY, (Reported) Scheduled PRN Buspirone Hcl* (Buspirone Hcl*), 10 MG ORAL bid PRN for For Anxiety, (Reported) Ibuprofen (Ibuprofen), 800 MG PO TID PRN for RA pain in hands and feet, ( Reported) Trazodone* (Trazodone*), 100 MG ORAL BEDTIME PRN for SLEEP, (Reported) Review of Systems Cardiovascular: Reports: no symptoms Respiratory: Reports: no symptoms Skeletal: Reports: no symptoms Genitourinary: Reports: no symptoms Neurologic: Reports: no symptoms Endocrine: Reports: no symptoms Hematologic: Reports: no symptoms Physical Exam Vital Signs Last Vital Signs Date Time Temp Pulse Resp B/P (MAP) Pulse Ox O2 Delivery O2 Flow Rate FiO2 08/03/19 08:22 98.0 81 18 133/74 98 Room Air Skin: normal HENT: normal Heart: normal Lungs: normal Abdomen: normal Extremities: normal Plan Plan of Care egd Attestation Are the patient's medical conditions optimized for surgery? Attestation Response: yes Pieter Mcknight MD Aug 03, 2019 09:29
--- NOTE | 2019-08-03 09:41 | Endoscopy Procedure Note ---
Endoscopy Procedure Note General Indication for Procedure: barretts Procedures Performed: EGD Operative Findings/Diagnosis: same Specimen: yes Pt Tolerated Procedure Well: Yes Estimated Blood Loss: none Anesthesia Anesthesiologist: tessa Anesthesia: MAC Inserted Devices Implant(s) used?: No GI Core Measures 50 yrs or older w/o bx or poly: Not Applicable 10yrs. F/U recommended: Not Applicable Pieter Mcknight MD Aug 03, 2019 09:41
--- NOTE | 2019-08-03 10:03 | Immediate Post-Op Evaluation ---
Immediate Post-Op Evalulation Immediate Post-Op Evalulation Procedure: egd/bx Date of Evaluation: Aug 03, 2019 Time of Evaluation: 10:02 IV Fluids: 300ml lr Blood Products: none Estimated Blood Loss: negligible Blood Pressure Systolic: 151 Blood Pressure Diastolic: 98 Pulse Rate: 85 Respiratory Rate: 18 O2 Sat by Pulse Oximetry: 100 Temperature (Fahrenheit): 97.9 Pain Score (1-10): 0 Nausea: No Vomiting: No Complications none Patient Status: awake, reacts, patent Hydration Status: adequate Drug: Oneida Del Real MD Aug 03, 2019 10:03
--- NOTE | 2019-08-03 10:06 | 48 Hour Post Anesthesia Eval ---
Post Anesthesia Evaluation Procedure: egd/bx Date of Evaluation: Aug 03, 2019 Time of Evaluation: 10:04 Blood Pressure Systolic: 145 0: 90 Pulse Rate: 85 Respiratory Rate: 18 Temperature (Fahrenheit): 97.9 O2 Sat by Pulse Oximetry: 100 Airway: patent Nausea: No Vomiting: No Pain Intensity: 0 Hydration Status: adequate Cardiopulmonary Status: stable Mental Status/LOC: patient returned to baseline Post-Anesthesia Complications: none Follow-up care needed: N/A Oneida Davidson MD Aug 03, 2019 10:06
--- NOTE | 2019-08-03 16:00 | Procedure Note ---
DATE OF PROCEDURE: 08/03/2019 SURGEON: Pieter Mcknight M.D. PROCEDURE: Upper endoscopy with biopsy. ANESTHESIA: Per Dr. Rain. INSTRUMENT: Olympus adult flexible upper endoscope. INDICATION: Gibson esophagus. REASON FOR PROCEDURE: The procedure, risks, benefits, and possible consequences, including hemorrhage, aspiration, perforation and infection, and alternative treatments, were explained to the patient/legal guardian by Dr. Pieter Mcknight and the patient/legal guardian understood and accepted these risks. PROCEDURE IN DETAIL: After informed consent was obtained and the patient was adequately sedated, Olympus upper endoscope was advanced from mouth into the second portion of the duodenum and retroflexion was performed in the stomach. The patient has a 3 cm hiatal hernia from 35 to 38. The patient has evidence of short segment Gibson esophagus. We used a narrow-band imaging to get a better look at this and we were able to do multiple biopsy to rule out dysplasia. At this time, the scope was retrieved and procedure was terminated. SUMMARY OF FINDINGS: 1. A 3 cm hiatal hernia. 2. Gibson esophagus, short segment, status post multiple biopsy. RECOMMENDATIONS: Follow biopsy results and treat accordingly. Pieter Mcknight M.D. DR: CASSI JOB#: [id number] CC:
--- NOTE | 2019-08-03 19:09 | Cardiology Report ---
APPROVED REPORT EKG Measurement Heart [id number] [place] 190P62 [id number] Normal sinus rhythm Incomplete right bundle branch block Left anterior fascicular block Abnormal ECG
== END 2019-08-03 10:58 | disposition home or self-care (01) ==
LOC: GAS 07:51
DX: K22.70 Barrett's esophagus without dysplasia (principal); K44.9 Diaphragmatic hernia without obstruction or gangrene; I44.4 Left anterior fascicular block; K21.9 Gastro-esophageal reflux disease without esophagitis; F32.9 Major depressive disorder, single episode, unspecified; F41.9 Anxiety disorder, unspecified; M06.9 Rheumatoid arthritis, unspecified; M19.90 Unspecified osteoarthritis, unspecified site; Z79.899 Other long term (current) drug therapy
CPT/HCPCS: 43239; 93005; J2704; J7120; 94003; 94150

== ENCOUNTER 2019-08-10 14:06 | Outpatient (CLI) | payer MEDICARE, MEDICAID ==
[~2019-08-10 14:06] MED LIST changes: -Atropine Inj 1mg/10ml Syr IV PRN; -DiphenhydrAMINE 50mg/ml Inj IVP PRN; -LR 1000ml 1,000 ML IVLG SCH; -Midazolam 2mg/2ml Inj IVP PRN; -fentaNYL 100 mcg/2 mL IV PRN
--- NOTE | 2019-08-10 15:15 | General Progress Note ---
Assessment/Plan Problem List: (1) Alcoholic pancreatitis ICD Codes: K85.20 - Alcohol induced acute pancreatitis without necrosis or infection SNOMED: 248638192 (2) GERD (gastroesophageal reflux disease) ICD Codes: K21.9 - Gastro-esophageal reflux disease without esophagitis SNOMED: 101987993 (3) Depression ICD Codes: F32.9 - Major depressive disorder, single episode, unspecified SNOMED: 83640035 Assessment/Plan: SUMMARY OF FINDINGS: 1. A 3 cm hiatal hernia. 2. Gibson esophagus, short segment, status post multiple biopsy biopsy results reviewed cont ppi RTC 6 months Subjective ROS Limited/Unobtainable: No Allergies: Coded Allergies: No Known Allergies (Unverified , 08/03/19) Objective General Appearance: alert EENT: PERRL/EOMI Neck: supple Cardiovascular: normal rate Respiratory/Chest: decreased breath sounds Abdomen: normal bowel sounds, non tender, soft Extremities: non-tender Pieter Mcknight MD Aug 10, 2019 15:15
--- NOTE | 2019-08-17 15:44 | IOP Daily Group Progress Note ---
IOP Daily Group Progress Note Treatment Plan/Target Problem: Date: Aug 17, 2019 Problem: depression Program: reflections Group Reflections - Saturday: group 3 (11:30am-12:15pm) Therapy Focus/Approach of Group: symptoms Goal(s) of Group: anger management, explore somatic reactions, identifying strengths, participate in a meditation group Observations: active listening skills, engaged, made insightful comments, participating actively, positive mood Staff Intervention: assessed pt's current mood, facilitated discussion, facilitated meditation exercise, provided psycho-education, taught relaxation skills Staff Intervention: The therapist led the group through a discussion about anger, including: misconceptions, management, and risks. The group members were asked to discuss their own coping skills and offer ideas up to the whole group. Then, the group was led in a moving meditation where they learned how to use their mind and body to assuage symptoms of anger and aggression. Response/Progress Noted: The patient was very interested in helping the other group members. She expressed interest in the topic of anger and offered insightful commentary for the group. MOR ENGLAND Aug 17, 2019 15:44
== END 2019-08-10 15:30 | disposition home or self-care (01) ==
LOC: PAN 14:06
DX: K85.20 Alcohol induced acute pancreatitis without necrosis or infection (principal); K21.9 Gastro-esophageal reflux disease without esophagitis; F32.9 Major depressive disorder, single episode, unspecified; K44.9 Diaphragmatic hernia without obstruction or gangrene
CPT/HCPCS: 99212

== ENCOUNTER → 2020-03-29 | Outpatient (CLI) | payer MEDICARE, MEDICAID ==
[~2020-03-29] MED LIST changes: +DEXILANT60 MG ORAL
[2020-03-29 15:01] VITALS: BP 96/63
--- NOTE | 2020-03-29 15:31 | General Progress Note ---
Assessment/Plan Assessment/Plan: Assessment/Plan Problem List: (1) Alcoholic pancreatitis ICD Codes: K85.20 - Alcohol induced acute pancreatitis without necrosis or infection SNOMED: 757638440 (2) GERD (gastroesophageal reflux disease) ICD Codes: K21.9 - Gastro-esophageal reflux disease without esophagitis SNOMED: 556321885 (3) Depression ICD Codes: F32.9 - Major depressive disorder, single episode, unspecified SNOMED: 83885947 Assessment/Plan: SUMMARY OF FINDINGS: 1. A 3 cm hiatal hernia. 2. Gibson esophagus, short segment, status post multiple biopsy CT reviewed> pancreatic Cyst plan MRI and possible EUS if needed Subjective ROS Limited/Unobtainable: Yes Allergies: Coded Allergies: No Known Allergies (Unverified , 08/03/19) Objective Last 24 Hour Vital Signs Date Time Temp Pulse Resp B/P (MAP) Pulse Ox O2 Delivery O2 Flow Rate FiO2 03/29/20 15:01 97.9 91 16 96/63 (74) 96 General Appearance: alert EENT: normal ENT inspection Neck: supple Cardiovascular: normal rate Respiratory/Chest: lungs clear Abdomen: normal bowel sounds, non tender, soft Extremities: non-tender Pieter Mcknight MD Mar 29, 2020 15:31
== END | disposition home or self-care (01) ==
LOC: PAN 10:43
DX: K85.20 Alcohol induced acute pancreatitis without necrosis or infection (principal); K21.9 Gastro-esophageal reflux disease without esophagitis; F32.9 Major depressive disorder, single episode, unspecified; K44.9 Diaphragmatic hernia without obstruction or gangrene

== ENCOUNTER 2020-05-04 12:44 | Outpatient (CLI) | payer MEDICARE, MEDICAID ==
--- NOTE | 2020-05-04 15:09 | General Progress Note ---
Assessment/Plan Assessment/Plan: Assessment/Plan Problem List: (1) Alcoholic pancreatitis ICD Codes: K85.20 - Alcohol induced acute pancreatitis without necrosis or infection SNOMED: 537047991 (2) GERD (gastroesophageal reflux disease) ICD Codes: K21.9 - Gastro-esophageal reflux disease without esophagitis SNOMED: 287415523 (3) Depression ICD Codes: F32.9 - Major depressive disorder, single episode, unspecified SNOMED: 67614835 Assessment/Plan: mrcp reviewed add Creon plan EUS Subjective ROS Limited/Unobtainable: Yes Allergies: Coded Allergies: No Known Allergies (Unverified , 08/03/19) Objective General Appearance: alert EENT: normal ENT inspection Neck: supple Cardiovascular: normal rate Respiratory/Chest: decreased breath sounds Abdomen: normal bowel sounds, non tender, soft Extremities: non-tender Pieter Mcknight MD May 04, 2020 15:09
[2020-05-07] MEDS ORDERED: HYDROCORTISONE-30 GM TOPIC (18:27)
[2020-05-07] MEDS ORDERED: CEPHALEXIN500 MG ORAL (18:27)
[2020-05-07] MEDS ORDERED: IBUPROFEN600 M1 ORAL (18:27)
== END 2020-05-04 14:44 | disposition home or self-care (01) ==
LOC: PAN 12:44
DX: K85.90 Acute pancreatitis without necrosis or infection, unspecified (principal); K21.9 Gastro-esophageal reflux disease without esophagitis; F32.9 Major depressive disorder, single episode, unspecified
CPT/HCPCS: 99212

== ENCOUNTER 2020-05-16 07:56 | Day surgery (SDC) | payer MEDICARE, MEDICAID ==
[2020-05-16] VITALS (9 sets, daily range): BP systolic 114–132; BP diastolic 70–84
[~2020-05-16] VITALS: Ht 160 cm; Wt 49.9 kg
[~2020-05-16 07:56] MED LIST changes: +CEPHALEXIN500 MG ORAL; +HYDROCORTISONE-30 GM TOPIC; +IBUPROFEN600 M1 ORAL
[2020-05-16] MEDS ORDERED: LR 1000ml 1,000 ML IVLG SCH (08:00)
--- NOTE | 2020-05-16 09:59 | Pre-Procedure Note/Attestation ---
Pre-Procedure Note/Attestation Complete Prior to Procedure Planned Procedure: not applicable Procedure Narrative: EUS Indications for Procedure Pre-Operative Diagnosis: PANCREATIC LESION Attestation I attest that I discussed the nature of the procedure; its benefits; risks and complications; and alternatives (and the risks and benefits of such alternatives ), prior to the procedure, with the patient (or the patient's legal sales development representative). I attest that, if there was a reasonable possibility of needing a blood transfusion, the patient (or the patient's legal sales development representative) was given the [facility] standardized written summary, pursuant to the [place] Blood Safety Act ([place] Health and Safety Code # 1645, as amended). I attest that I re-evaluated the patient just prior to the surgery and that there has been no change in the patient's H&P, except as documented below: Pieter Mcknight MD May 16, 2020 09:59
--- NOTE | 2020-05-16 10:00 | Short Stay Surgery H&P ---
History of Present Illness History of Present Illness Chief Complaint PANCREATIC LESION HPI Shital Garcia is a 70 year old female who was admitted on for Pancreatic Cyst Patient History Allergies: Coded Allergies: No Known Allergies (Unverified , 08/03/19) PAST MEDICAL HISTORY: (1) Alcoholic pancreatitis (2) GERD (gastroesophageal reflux disease) (3) Depression (4) Abdominal pain (5) Major depression Medication History Scheduled Buspirone Hcl* (Buspirone Hcl*), 10 MG ORAL BID, (Reported) Cephalexin* (Keflex*), 500 MG ORAL EVERY 6 HOURS Dexlansoprazole (Dexilant), 60 MG ORAL DAILY, (Reported) Multivitamins* (Multivitamins*), 1 TAB ORAL DAILY, (Reported) Thiamine Hcl* (Vitamin B-1*), 100 MG ORAL DAILY, (Reported) Venlafaxine Hcl* (Venlafaxine Hcl Er*), 300 MG ORAL DAILY, (Reported) Scheduled PRN Ibuprofen (Ibuprofen), 800 MG PO TID PRN for RA pain in hands and feet, ( Reported) Trazodone* (Trazodone*), 100 MG ORAL BEDTIME PRN for SLEEP, (Reported) Discontinued Medications Hydrocortisone/Aloe (Hydrocortisone/Aloe 1% Cream*), 1 APPLIC TOPIC Q6H PRN for Itching Discontinued Reason: Pt stopped taking med Ibuprofen* (Motrin*), 600 MG ORAL Q8H PRN for FOR PAIN Discontinued Reason: Pt stopped taking med Review of Systems Cardiovascular: Reports: no symptoms Respiratory: Reports: no symptoms Skeletal: Reports: no symptoms Gastrointestinal: Reports: no symptoms Genitourinary: Reports: no symptoms Neurologic: Reports: no symptoms Endocrine: Reports: no symptoms Physical Exam Vital Signs Last Vital Signs Date Time Temp Pulse Resp B/P (MAP) Pulse Ox O2 Delivery O2 Flow Rate FiO2 05/16/20 09:23 Room Air 05/16/20 09:20 97.9 85 18 116/76 97 Skin: normal HENT: normal Heart: normal Lungs: normal Abdomen: normal Extremities: normal Plan Plan of Care EUS Attestation Are the patient's medical conditions optimized for surgery? Attestation Response: yes Pieter Mcknight MD May 16, 2020 10:00
[2020-05-16] MEDS ORDERED: fentaNYL 100 mcg/2 mL IV ONE (10:14)
[2020-05-16] MEDS ORDERED: Lidocaine 1% MPF 10mg/ml 5ml ONE (10:30)
[2020-05-16] MEDS ORDERED: ePHEDrine 50mg/ml Inj ONE (10:30)
[2020-05-16] MEDS ORDERED: LR 1000ml ONE (10:30)
[2020-05-16] MEDS ORDERED: Heplock Flush 100 units/ml 3 ml syr ONE (10:42)
--- NOTE | 2020-05-16 11:06 | Endoscopy Procedure Note ---
Endoscopy Procedure Note General Indication for Procedure: pancreatitis Procedures Performed: other - EUS Operative Findings/Diagnosis: same Specimen: yes Pt Tolerated Procedure Well: Yes Estimated Blood Loss: none Anesthesia Anesthesiologist: mayda Anesthesia: MAC Inserted Devices Implant(s) used?: No GI Core Measures 50 yrs or older w/o bx or poly: Not Applicable 10yrs. F/U recommended: Not Applicable Pieter Mcknight MD May 16, 2020 11:06
--- NOTE | 2020-05-16 11:15 | Anethesia Preoperative Eval ---
Anesthesia Pre-op PMH/ROS General Date of Evaluation: May 16, 2020 Time of Evaluation: 10:20 Anesthesiologist: manolo ASA Score: ASA 3 Mallampati Score Class I : Soft palate, uvula, fauces, pillars visible Class II: Soft palate, uvula, fauces visible Class III: Soft palate, base of uvula visible Class IV: Only hard plate visible Mallampati Classification: Class II Surgeon: jens Diagnosis: pancreatic cyst Surgical Procedure: EUS Anesthesia History: none Social History: smoking, current smoker Family History: no anesthesia problems Allergies: Coded Allergies: No Known Allergies (Unverified , 08/03/19) Medications: see eMAR Patient NPO?: Yes NPO Date: May 16, 2020 NPO Time: 00:01 Past Medical History Cardiovascular: Reports: HTN Gastrointestinal/Genitourinary: Reports: GERD, other - pancreatic cyst; Denies: CRI, ESRD Neurologic/Psychiatric: Reports: depression/anxiety; Denies: dementia, CVA, TIA, other Endocrine: Denies: DM, hypothyroidism, steroids, other HEENT: Denies: cataract (L), cataract (R), glaucoma, UGASHIK (L), UGASHIK (R), other Hematology/Immune: Denies: anemia, DVT, bleeding disorder, other Musculoskeletal/Integumentary: Denies: OA, RA, DJD, DDD, edema, other PSxH Narrative: EGD/EUS Anesthesia Pre-op Phys. Exam Physician Exam Last Vital Signs Date Time Temp Pulse Resp B/P (MAP) Pulse Ox O2 Delivery O2 Flow Rate FiO2 05/16/20 09:23 Room Air 05/16/20 09:20 97.9 85 18 116/76 97 Constitutional: NAD Neurologic: CN 2-12 intact Cardiovascular: RRR Respiratory: CTA Gastrointestinal: S/NT/ND Airway Exam Mallampati Classification 2 Mallampati Score: Class II MO: full ROM: full Dentures: no upper, no lower Anesthesia Pre-op A/P Studies Pre-op Studies: EKG - SR Risk Assessment & Plan Assessment: covid neg Plan: mac Status Change Before Surgery: No Pre-Antibiotics Drug: none Huong Arias CRNA May 16, 2020 11:15
--- NOTE | 2020-05-16 11:16 | Immediate Post-Op Evaluation ---
Immediate Post-Op Evalulation Immediate Post-Op Evalulation Procedure: EUS Date of Evaluation: May 16, 2020 Time of Evaluation: 11:15 IV Fluids: 800 Blood Pressure Systolic: 114 Blood Pressure Diastolic: 47 Pulse Rate: 70 Respiratory Rate: 14 O2 Sat by Pulse Oximetry: 98 Temperature (Fahrenheit): 97.7 Nausea: No Vomiting: No Complications none Patient Status: awake, reacts, patent Hydration Status: adequate Drug: none Huong Arias CRNA May 16, 2020 11:16
[2020-05-16] MEDS ORDERED: Ketorolac 30mg Inj ONE (11:35)
[2020-05-16] MEDS ORDERED: Ketorolac 30mg Inj IV SCH (11:45)
--- NOTE | 2020-05-16 12:26 | 48 Hour Post Anesthesia Eval ---
Post Anesthesia Evaluation Procedure: EUS Date of Evaluation: May 16, 2020 Time of Evaluation: 12:26 Blood Pressure Systolic: 123 0: 85 Pulse Rate: 70 Respiratory Rate: 14 O2 Sat by Pulse Oximetry: 98 Airway: patent Nausea: No Vomiting: No Hydration Status: adequate Cardiopulmonary Status: stable Mental Status/LOC: patient returned to baseline Follow-up Care/Observations: na Post-Anesthesia Complications: none Follow-up care needed: N/A Huong Arias CRNA May 16, 2020 12:26
--- NOTE | 2020-05-16 12:30 | Procedure Note ---
DATE OF PROCEDURE: 05/16/2020 SURGEON: Pieter Mcknight MD. PROCEDURE PERFORMED: EUS with FNA. ANESTHESIA: Per VISUAL ARTIST, Huong Tarrillion. INSTRUMENT USED: Olympus adult flexible ERCP scope. INDICATION: Pancreatitis, possible pancreatic mass. DESCRIPTION OF PROCEDURE: After informed consent was obtained and the patient was adequately sedated, first EUS radial scope was advanced from mouth into the second portion of the duodenum and pancreatic parenchyma was carefully examined through gastroduodenal mucosa. The patient had severe atrophic pancreas in the body and tail. In the head of the pancreas, there was evidence of extensive pancreatitis with severe calcifications, cannot rule out mass given this extensive inflammation. No obvious pancreatic duct dilatation. No obvious common bile duct dilatation. At this time, the EUS radial scope was removed and linear scope was introduced. Using a 22-gauge needle two passes was made into this pancreatic head area for diagnosis. The patient tolerated procedure well without any complication. SUMMARY OF FINDINGS: 1. Severe atrophic pancreatitis with severe calcifications especially in the head of the pancreas. 2. Status post FNA x2. RECOMMENDATIONS: Follow FNA results and treat accordingly. Pieter Mcknight M.D. DR: Sidney JOB#: [id number] CC:
--- NOTE | 2020-05-18 16:33 | Cardiology Report ---
APPROVED REPORT EKG Measurement Heart [id number] [place] 202P56 [id number] <Conclusion> Normal sinus rhythm Left anterior fascicular block Abnormal ECG
== END 2020-05-16 12:30 | disposition home or self-care (01) ==
LOC: GAS 07:56
DX: K85.90 Acute pancreatitis without necrosis or infection, unspecified (principal); K21.9 Gastro-esophageal reflux disease without esophagitis; F32.9 Major depressive disorder, single episode, unspecified; Z79.899 Other long term (current) drug therapy; I10 Essential (primary) hypertension; F41.9 Anxiety disorder, unspecified; F17.200 Nicotine dependence, unspecified, uncomplicated
CPT/HCPCS: 43232; 93005; 94003; J1642; J1885; J2704; J3010; J7120; U0002; 94150

== ENCOUNTER 2020-05-23 13:51 | Outpatient (CLI) | payer MEDICARE, MEDICAID ==
--- NOTE | 2020-05-23 14:11 | General Progress Note ---
Subjective ROS Limited/Unobtainable: No Allergies: Coded Allergies: No Known Allergies (Unverified , 08/03/19) Objective General Appearance: no apparent distress EENT: normal ENT inspection Neck: supple Cardiovascular: normal rate Respiratory/Chest: decreased breath sounds Abdomen: normal bowel sounds, non tender, soft Extremities: non-tender Assessment/Plan Assessment/Plan: Assessment/Plan Problem List: (1) Alcoholic pancreatitis ICD Codes: K85.20 - Alcohol induced acute pancreatitis without necrosis or infection SNOMED: 010538065 (2) GERD (gastroesophageal reflux disease) ICD Codes: K21.9 - Gastro-esophageal reflux disease without esophagitis SNOMED: 203788834 (3) Depression s/p EUS/FNA path reviewed cont Creon check CA 19-9 Pieter Mcknight MD May 23, 2020 14:11
== END 2020-05-23 15:51 | disposition home or self-care (01) ==
LOC: PAN 13:51
DX: K85.20 Alcohol induced acute pancreatitis without necrosis or infection (principal); K21.9 Gastro-esophageal reflux disease without esophagitis; F32.9 Major depressive disorder, single episode, unspecified